=== PATIENT | male | born 1945 | race Caucasian/White ===

== ENCOUNTER 2017-04-16 07:29 | Day surgery (SDC) | payer OTHER ==
[2017-04-16] MEDS: NS 1,000 ML IV (08:15)
[2017-04-16] MEDS ORDERED: LIDOCAINE 2% INJ 100 MG/5 ML SDV (FOR ANES.) As Ordered (09:09)
[2017-04-16] MEDS ORDERED: PROPOFOL 200 MG/20 ML VIAL As Ordered ×2 (09:09→09:31)
== END 2017-04-16 10:30 | disposition home or self-care (01) ==
LOC: M OPP 07:29
DX: Z12.11 Encounter for screening for malignant neoplasm of colon (principal); Z86.010 Personal history of colon polyps; K64.0 First degree hemorrhoids; K57.30 Diverticulosis of large intestine without perforation or abscess without bleeding; R12 Heartburn; K22.8 Other specified diseases of esophagus; K44.9 Diaphragmatic hernia without obstruction or gangrene; B37.81 Candidal esophagitis; I10 Essential (primary) hypertension; R94.31 Abnormal electrocardiogram [ECG] [EKG]; E11.9 Type 2 diabetes mellitus without complications; E03.9 Hypothyroidism, unspecified; K76.0 Fatty (change of) liver, not elsewhere classified; K59.00 Constipation, unspecified; R10.9 Unspecified abdominal pain; K21.9 Gastro-esophageal reflux disease without esophagitis; M54.89 Other dorsalgia; M54.2 Cervicalgia; Z85.820 Personal history of malignant melanoma of skin; R51 Headache; J45.909 Unspecified asthma, uncomplicated; J44.9 Chronic obstructive pulmonary disease, unspecified; G47.30 Sleep apnea, unspecified; R06.83 Snoring; Z98.1 Arthrodesis status; Z88.8 Allergy status to other drugs, medicaments and biological substances; Z79.82 Long term (current) use of aspirin; Z79.899 Other long term (current) drug therapy; Z87.891 Personal history of nicotine dependence
CPT/HCPCS: G0105

== ENCOUNTER → 2017-12-01 | Outpatient (CLI) | payer OTHER | LOC: M CARPUL 11:07 | DX: R06.02 Shortness of breath (principal) | CPT/HCPCS: 93306 ==

== ENCOUNTER → 2018-06-18 | Outpatient (REF) | payer OTHER, MEDICARE ==
[~2018-06-18] MED LIST: ALBU83IN INH; ASPI1TAB PO; COQ-100C2 PO; FLON1SPR; GLUCPOW24 PO; LEVO25TA5 PO; LISI-542 PO; METF500T13 PO; METO25TA4 PO; MULT1TAB10 PO; OMEP40CA2 PO; SAW80CAP PO; VITA100067 PO
== END ==
LOC: M SFHCPLAZ 18:24
PROVIDERS: ATTEND Dermatology
DX: C44.311 Basal cell carcinoma of skin of nose (principal); L57.0 Actinic keratosis; L82.1 Other seborrheic keratosis

== ENCOUNTER 2018-11-11 14:49 | Inpatient (IN) | payer MEDICARE ==
[~2018-11-11] VITALS: Ht 172.7 cm; Wt 81.6 kg
[~2018-11-11 14:49] MED LIST changes: -ASPI1TAB PO; +ASPI81TA26 PO
[2018-11-11 16:15] LABS: VENOUS BASE EXCESS 0.9 (-2.0-2.0); VENOUS HCO3 26.1 MEQ/L (23.0-27.0); VENOUS O2 SATURATION 74.6 % (60.0-80.0); VENOUS PARTIAL PRESSURE CO2 44.7 mmHg (38.0-50.0); VENOUS PARTIAL PRESSURE O2 41.6 mmHg (30.0-50.0); VENOUS PH 7.385 UNITS (7.330-7.430); VENOUS STANDARD HCO3 24.8 MEQ/L; VENOUS TOTAL CO2 27.5 MEQ/L (24.0-28.0)
[2018-11-11 16:22] LABS: BASO % 0.3 % (0.0-1.0); EOS # 0.1 10^3/uL (0.0-0.50); EOS % 0.7 % (0.0-3.0); HEMATOCRIT 30.5 % (42.0-52.0); HEMOGLOBIN 9.5 g/dl (13.5-17.5); LYMPH % 9.9 % (24.0-44.0); MEAN CORPUSCULAR HGB CONC 31.1 g/dl (32.0-36.5); MONO % 9.9 % (0.0-5.0); NEUTROPHILS # 7.5 10^3/uL (1.8-7.7); NEUTROPHILS % 77.9 % (36.0-66.0); PLATELET COUNT, AUTOMATED 359 10^3/uL (150-450); RED BLOOD COUNT 3.28 10^6/uL (4.30-6.10); WHITE BLOOD COUNT 9.7 10^3/uL (4.0-10.0)
[2018-11-11 16:34] LABS: ALBUMIN 2.1 GM/DL (3.2-5.2); ALT/SGPT 122 U/L (12-78); AMYLASE 28 U/L (25-115); BILIRUBIN,DIRECT 0.8 MG/DL (0.0-0.2); BILIRUBIN,TOTAL 1.5 MG/DL (0.2-1.0); BLOOD UREA NITROGEN 9 MG/DL (7-18); C REACTIVE PROTEIN QUANTITATIV 4.04 MG/DL (0.00-0.30); CALCIUM LEVEL 8.3 MG/DL (8.8-10.2); CARBON DIOXIDE LEVEL 28 MEQ/L (21-32); CHLORIDE LEVEL 104 MEQ/L (98-107); CK-MB VALUE MASS < 1.0 NG/ML (<3.6); CPK CREATINE PHOSPHOKINASE 26 U/L (39-308); CREATININE FOR GFR 0.91 MG/DL (0.70-1.30); GLOMERULAR FILTRATION RATE > 60.0 (>42); GLUCOSE, FASTING 101 MG/DL (70-100); MB/CK RELATIVE INDEX 3.85 (< OR =4); POTASSIUM SERUM 4.2 MEQ/L (3.5-5.1); SODIUM LEVEL 137 MEQ/L (136-145); TOTAL PROTEIN 6.3 GM/DL (6.4-8.2); TROPONIN I < 0.02 NG/ML (< 0.10)
[2018-11-11 16:44] LABS: INR 1.88; PROTHROMBIN TIME 21.4 SECONDS (11.8-14.0)
[2018-11-11 16:45] LABS: PARTIAL THROMBOPLASTIN TIME 38.7 SECONDS (25.0-38.4)
[2018-11-11 16:49] LABS: APPEARANCE, URINE CLEAR (CLEAR); BACTERIA, URINE AUTO NEGATIVE (NEGATIVE); BILIRUBIN, URINE AUTO NEGATIVE (NEGATIVE); BLOOD, URINE BLOOD NEGATIVE (NEGATIVE); COLOR, URINE YELLOW (YELLOW); GLUCOSE, URINE (UA) AUTO NEGATIVE (NEGATIVE); KETONE, URINE AUTO NEGATIVE (NEGATIVE); LEUKOCYTE ESTERASE, URINE AUTO NEGATIVE (NEGATIVE); MUCUS, URINE SMALL (NEGATIVE); NITRITE, URINE AUTO NEGATIVE (NEGATIVE); PROTEIN, URINE AUTO NEGATIVE (NEGATIVE); RBC, URINE AUTO 2 /HPF (0-3); SPECIFIC GRAVITY URINE AUTO 1.012 (1.002-1.035); SQUAMOUS EPITHELIAL CELL UR AU 1 /HPF (0-6); WBC, URINE AUTO 0 /HPF (0-3)
[2018-11-11] MEDS ORDERED: XARE20TA PO (17:13)
[2018-11-11] MEDS ORDERED: MONT10TA2 PO (17:13)
[2018-11-11] MEDS ORDERED: PRAV10TA3 PO (17:13)
[2018-11-11] MEDS ORDERED: TRAM50TA2 PO (17:13)
[2018-11-11] MEDS ORDERED: SPIR1CAP INH (17:13)
[2018-11-11] MEDS ORDERED: XARE15TA PO (17:13)
[2018-11-11] MEDS ORDERED: ASPIRIN PO (17:13)
[2018-11-11] MEDS ORDERED: RANI300C PO (17:13)
[2018-11-11] MEDS ORDERED: LEVO750T13 PO (17:13)
[2018-11-11] MEDS ORDERED: ADV500INH INH (17:13)
--- NOTE | 2018-11-11 17:57 | REPVR ---
EXAM: CT Chest Without Contrast EXAM DATE/TIME: 11/11/2018 5:24 PM CLINICAL HISTORY: 73 years old, male; Chest pain; Additional info: Infiltrate/atelectasis S/P chest tube TECHNIQUE: Imaging protocol: Computed tomography images of the chest without contrast. 3D rendering: MIP reconstructed images were created and reviewed. Radiation optimization: All CT scans at this facility use at least one of these dose optimization techniques: automated exposure control; mA and/or kV adjustment per patient size (includes targeted exams where dose is matched to clinical indication); or iterative reconstruction. COMPARISON: CR PORTABLE CHEST X-RAY 11/11/2018 3:36 PM FINDINGS: Lungs: There is a parenchymal infiltrate in the right lower lobe with air bronchograms likely atelectatic although infection should be excluded clinically. 3.5 mm noncalcified nodule left upper lobe and 3.8 mm noncalcified nodule posterior segment left upper lobe abuts the major fissure. These are likely postinflammatory. No followup suggested. Thickened airways demonstrated in the left lower lobe may indicate the presence of peribronchial inflammation and bronchitis. Pleural space: There is a small right pleural effusion, possibly loculated on the right. Small left pleural effusion. Slight increased density demonstrated in components of the fluid to represent hemorrhage. Heart: There is mild atherosclerotic calcification of the coronary arteries. Aorta: The aorta demonstrates mild atherosclerotic calcification. Lymph nodes: Unremarkable. No enlarged lymph nodes. Bones/joints: Fractures demonstrated in the right first and 10th ribs. Fractures demonstrated in the left first rib. The spine demonstrates moderate degenerative changes. Soft tissues: Soft tissue air demonstrated anterior to the right pectoralis muscle, right lateral chest wall, and anterior to the left pectoralis muscle. Findings likely related to the presence of rib fractures and/or recent removal of chest tubes. Liver: There is a hypoattenuating mass with foci of increased attenuation demonstrated in the posterior aspect of the right lobe of the liver measuring approximately 5.9 x 10.3 x 8.1 cm. IMPRESSION: 1. There is a small right pleural effusion, possibly loculated on the right. Small left pleural effusion. Slight increased density demonstrated in components of the fluid to represent hemorrhage. 2. There is a parenchymal infiltrate in the right lower lobe with air bronchograms likely atelectatic although infection should be excluded clinically. 3. Thickened airways demonstrated in the left lower lobe may indicate the presence of peribronchial inflammation and bronchitis. 4. Soft tissue air demonstrated anterior to the right pectoralis muscle, right lateral chest wall, and anterior to the left pectoralis muscle. Findings likely related to the presence of rib fractures and/or recent removal of chest tubes. 5. Fractures demonstrated in the right first and 10th ribs. Fractures demonstrated in the left first rib. 6. There is a hypoattenuating mass with foci of increased attenuation demonstrated in the posterior aspect of the right lobe of the liver measuring approximately 5.9 x 10.3 x 8.1 cm. Electronically signed by: Manny Blake On 11/11/2018 17:56:50 PM
[2018-11-11] MEDS ORDERED: VANCOMYCIN HCL 1,000 MG, VIAL MATE ADAPTER 1 EACH in D5W 250 ML IV ONE (18:00)
[2018-11-11] MEDS ORDERED: PIPERACILLIN/TAZOBACTAM SOD 3.375 GM in D5W MINI-BAG PLUS 50 ML IV ONE (18:00)
--- NOTE | 2018-11-11 18:30 | REP ---
PORTABLE CHEST: AP portable view of the chest is performed. COMPARISON: 08/26/2017 There are fractures of the right posterolateral third through ninth ribs. There is no pneumothorax. There is right basilar parenchymal opacity representing atelectasis or infiltrate. There is mild elevation of the right hemidiaphragm. Left lung is clear. Heart is not enlarged. Mediastinal silhouette is unremarkable. Electronically Signed by Brayan Perry MD 11/13/2018 10:49 A
[2018-11-11] MEDS ORDERED: ASPI-1 PO (18:38)
[2018-11-11] MEDS ORDERED: METO1TAB32 PO (18:44)
[2018-11-11] MEDS ORDERED: FLUTICASONE PROP 0.05% NASAL SPRAY 16 GM (FLONASE) PRN (20:45)
[2018-11-11] MEDS ORDERED: DEXTROSE 50% 50 ML SYRINGE IV PRN (20:45)
[2018-11-11] MEDS ORDERED: GLUCAGON FOR INJ 1 MG VIAL (J1610) SC PRN (20:45)
[2018-11-11] MEDS ORDERED: GLUCOSE 4 GM CHEW TABLET PO PRN (20:45)
[2018-11-11] MEDS: ADVAIR HFA 230/21MCG INHALER INH SCH (21:00)
[2018-11-11] MEDS: MONTELUKAST 10 MG TAB PO SCH (21:00)
[2018-11-11 21:30] VITALS: BP 155/75
[2018-11-11] MEDS: ACETAMINOPHEN TAB 650MG DOSE (2X325MG) PO PRN (21:58)
[2018-11-11] MEDS: RIVAROXABAN 15 MG TAB (XARELTO) PO SCH (21:58)
[2018-11-11] MEDS: DOCUSATE SODIUM 100 MG CAP PO SCH (21:59)
[2018-11-11] MEDS: HumaLOG INSULIN (NovoLOG) PER UNIT SC SCH (22:00)
[2018-11-11] MEDS ORDERED: SLF 3 ML SYR IV PRN (22:30)
--- NOTE | 2018-11-11 22:39 | HPEPDOC ---
[facility] Medical History & Physical Date of Admission Nov 11, 2018 Date of Service: Nov 11, 2018 History and Physical CHIEF COMPLAINT: [FEVER ] HISTORY OF PRESENT ILLNESS: This is a 73 yo male who was recently admitted at [facility] after falling from a tree branch. He came in today for fever last night and this morning. Of Note when he was admitted to [facility], after the fall he was dx with hypovolemic shock, subcutaneous emphysema, traumatic pneumothorax, met acidosis with increased AG, closed fracture of multiple ribs on right side, pneumomediastinum, splenic laceration with open wound into cavity, liver laceration grade II with open wound into cavity, and traumatic hemoperitoneum. A chest tube was placed ( patient said on both sides) and he was admitted to icu . He also developed sbo and afib with rvr and ?pneumonia. Later patient became more dyspnic and a CTA revealed a small PE in the right pulm art faby. Blood cx grew ecoli. He was seen and treated by multiple specialists and was dc yesterday 11/10/18. Thorough details of this visit should be scanned into patient's chart. So he was dc on xeralto for afib//PE and levaquin for 7 days, along with other meds for his chronic med hx . He developed fever less than 24 hours after dc . He has a very productive cough, but is having difficulty with expectorating it. Patient denied headache, chest pain, sob, back pain, nausea, vomiting , abd pain, constipation or diarrhea PAST MEDICAL HISTORY: htn dm2 hypothyroidism afib PE cholelithiasis ecoli bacteriemia asthma hypovolemic shock subcutaneous emphysema traumatic pneumothorax met acidosis with increased AG closed fracture of multiple ribs on right side pneumomediastinum splenic lcaeration with open wound into cavity liver laceration grade II with open wound into cavity traumatic hemoperitoneum. PAST SURGICAL HISTORY: 1. rotator cuff surgery 2. knee surgery - after trauma (?ligament damage - pt doesn't remember which side ) 3. nose surgery x2 - 1. traumatic event , sinusitis 4. back- surgery - multiple vertebrae involved 5. chest tube placement SOCIAL HISTORY: Marital status: [ ]. Resides in: [lives with ] Children: Employment: [retired ] Tobacco use:[quit in ] ETOH: [occasional use ] Illicit drug use: [none ] Tattoos done unprofessionally: [no ]. 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 REVIEW OF SYSTEMS: All 10 points ros are negative except what's stated in HPI. HOME MEDICATIONS: Please see below. PHYSICAL EXAMINATION: vital signs - see below Gen: NAD . productive cough, lying comfortably at 30 degrees head raise, HEENT: normocephalic , atraumatic , PERRLA, neck supple, no pharyngeal erythema, small amount of candidiasis on tongue CVS: RRR, normal s1//s2, no murmurs, rubs or gallop, Resp: productive cough, decreased breath sound in left lower lung field, right lung field clear to auscultation Abd: soft, nontender, distended, +bs msk: normal rom, normal strength in all extremities, pedal +2 edema skin: back with diffused skin tags, hyperpigmented neuro: AOAx3, no focal deficit psych: normal mood and affects, good judgement LABORATORY DATA: See below. IMAGING: [ PORTABLE CHEST: AP portable view of the chest is performed. COMPARISON: 08/26/2017 There are fractures of the right posterolateral third through ninth ribs. There is no pneumothorax. There is right basilar parenchymal opacity representing atelectasis or infiltrate. There is mild elevation of the right hemidiaphragm. Left lung is clear. Heart is not enlarged. Mediastinal silhouette is unremarkable. CHEST CT IMPRESSION: 1. There is a small right pleural effusion, possibly loculated on the right. Small left pleural effusion. Slight increased density demonstrated in components of the fluid to represent hemorrhage. 2. There is a parenchymal infiltrate in the right lower lobe with air bronchograms likely atelectatic although infection should be excluded clinically. 3. Thickened airways demonstrated in the left lower lobe may indicate the presence of peribronchial inflammation and bronchitis. 4. Soft tissue air demonstrated anterior to the right pectoralis muscle, right lateral chest wall, and anterior to the left pectoralis muscle. Findings likely related to the presence of rib fractures and/or recent removal of chest tubes. 5. Fractures demonstrated in the right first and 10th ribs. Fractures demonstrated in the left first rib. 6. There is a hypoattenuating mass with foci of increased attenuation demonstrated in the posterior aspect of the right lobe of the liver measuring approximately 5.9 x 10.3 x 8.1 cm. ] MICROBIOLOGY: Please see below. ASSESSMENT: 73 yo male with recent hospitalization at [facility] for a complicated traumatic fall who presented to our ED for cough and fever, admitted for HCAP PLAN: HCAP and atelectasis -C/W Vanc and zosyn -f/u blood cx -f/u procal -f/u sputum gs and cx -f/'u resp panel -f/u echo -f/u bascterial ag -f/u nasal mrsa r/o -c/w incentive spirometer asthma, chronic stable c/w singulair, advair and duoneb prn afib//PE -ekg- nsr at 96bpm - c/w xarelto -c/w metoprolol htn c/w home meds - bp stable hypothyroidism -c/w levothyroxine dvt ppx - on xeralto full code, from home , no svc Vital Signs Vital Signs Date Time Temp Pulse Resp B/P (MAP) Pulse Ox O2 Delivery O2 Flow Rate FiO2 11/11/18 18:45 92 137/73 (94) 96 11/11/18 14:49 100.3 22 Laboratory Data Labs 24H Laboratory Tests 2 11/11/18 15:47: Immature Granulocyte % (Auto) 1.3, White Blood Count 9.7, Red Blood Count 3.28L, Hemoglobin 9.5L, Hematocrit 30.5L, Mean Corpuscular Volume 93.0, Mean Corpuscular Hemoglobin 29.0, Mean Corpuscular Hemoglobin Concent 31.1L, Red Cell Distribution Width 15.0H, Platelet Count 359, Neutrophils (%) (Auto) 77.9H, Lymphocytes (%) (Auto) 9.9L, Monocytes (%) (Auto) 9.9H, Eosinophils (%) (Auto) 0.7, Basophils (%) (Auto) 0.3, Neutrophils # (Auto) 7.5, Lymphocytes # (Auto) 1.0L, Monocytes # (Auto) 1.0H, Eosinophils # (Auto) 0.1, Basophils # (Auto) 0.0, Nucleated Red Blood Cells % (auto) 0.0, Prothrombin Time 21.4H, Prothromb Time International Ratio 1.88, Activated Partial Thromboplast Time 38.7H, Urine Appearance CLEAR, Urine Color YELLOW, Urine pH 8.0, Urine Specific [place] 1.012, Urine Protein NEGATIVE, Urine Glucose (UA) NEGATIVE, Urine Ketones NEGATIVE, Urine Urobilinogen 4.0H, Urine Bilirubin NEGATIVE, Urine Leukocyte Esterase NEGATIVE, Urine Blood NEGATIVE, Urine Nitrite NEGATIVE, Urine WBC (Auto) 0, Urine RBC (Auto) 2, Urine Hyaline Casts (Auto) 0, Urine Bacteria (Auto) NEGATIVE, Urine Squamous Epithelial Cells 1, Urine Mucus (Auto) SMALL, Urine Sperm (Auto) , Blood Gas Bicarbonate Standard 24.8, Venous Blood pH 7.385, Venous Blood Partial Pressure CO2 44.7, Venous Blood Partial Pressure O2 41.6, Venous Blood Total Carbon Dioxide 27.5, Venous Blood HCO3 26.1, Venous Blood Oxygen Saturation 74.6, Venous Blood Base Excess 0.9, Anion Gap 5L, Glomerular Filtration Rate > 60.0, Lactic Acid Level 1.1, Calcium Level 8.3L, Aspartate Amino Transf (AST/SGOT) 65H, Alanine Aminotransferase (ALT/SGPT) 122H, Alkaline Phosphatase 413H, Total Bilirubin 1.5H, Direct Bilirubin 0.8H, Total Creatine Kinase 26L, Creatine Kinase MB < 1.0, Creatine Kinase MB Relative Index 3.85, Troponin I < 0.02, C-Reactive Protein, Quantitative 4.04H, Total Protein 6.3L, Albumin 2.1L, Albumin/Globulin Ratio 0.50L, Amylase Level 28 CBC/BMP Laboratory Tests 11/11/18 15:47 Red Blood Count 3.28 L, Mean Corpuscular Volume 93.0, Mean Corpuscular Hemoglob in 29.0, Mean Corpuscular Hemoglobin Concent 31.1 L, Red Cell Distribution Width 15.0 H, Neutrophils (%) (Auto) 77.9 H, Lymphocytes (%) (Auto) 9.9 L, Monocytes (%) (Auto) 9.9 H, Eosinophils (%) (Auto) 0.7, Basophils (%) (Auto) 0.3, Neutrophils # (Auto) 7.5, Lymphocytes # (Auto) 1.0 L, Monocytes # (Auto) 1.0 H, Eosinophils # (Auto) 0.1, Basophils # (Auto) 0.0 Microbiology Microbiology 11/11/18 Blood Culture, Received Pending 11/11/18 Blood Culture, Received Pending 11/11/18 Urine Culture, Received Pending Home Medications Scheduled Aspirin (Aspirin) 325 Mg Tablet, 325 MG PO DAILY Fluticasone Propionate (Flonase Allergy Relief) 50 Mcg/Act Spr, 50 MCG NA DAILY Levofloxacin (Levofloxacin) 750 Mg Tablet, 750 MG PO DAILY PT STARTED 7 DAY COURSE ON 11/11 Lisinopril (Lisinopril) 5 Mg Tab, 5 MG PO DAILY Metformin HCl (Metformin HCl) 500 Mg Tab, 500 MG PO DAILY Metoprolol Succinate (Metoprolol Succinate) 25 Mg Tab.er.24h, 25 MG PO DAILY Montelukast Sodium (Montelukast Sodium) 10 Mg Tablet, 10 MG PO QHS Omeprazole (Omeprazole) 40 Mg Cap, 40 MG PO DAILY Pravastatin Sodium (Pravastatin Sodium) 10 Mg Tablet, 10 MG PO DAILY Rivaroxaban (Xarelto) 15 Mg Tablet, 15 MG PO BID PT IS TAKING 15MG BID UNTIL 11/30/18 WHEN HE IS TO TAPER TO 20MG DAILY Rivaroxaban (Xarelto) 20 Mg Tablet, 20 MG PO DAILY WITH DINNER. NOT TO START UNTIL 11/30/18 Salmeterol/Fluticasone (Advair 500-50 Diskus) 1 Each Blst.w.dev, 1 PUFF INH BID Scheduled PRN Tramadol HCl (Tramadol HCl) 50 Mg Tablet, 50 MG PO Q6HP PRN for pain Allergies Coded Allergies: celecoxib (Verified Adverse Reaction, Intermediate, LIVER DAMAGE, 11/11/18) A-FIB/CHADSVASC A-FIB History Current/History of A-Fib/PAF?: Yes Current PO Anticoag Therapy: Yes Age/Risk Factor Scoring CHADSVASC: CHADSVASC Response (Comments) Value Age Risk Factor Age >/= 75 years old 2 Gender Risk Factor Male 0 Hx of CHF No 0 Hx of HTN Yes 1 Hx of Stroke/TIA/or VTE No 0 Hx of Diabetes Yes 1 Hx of Vascular Disease No 0 Total 4 Treatment Treatment ordered: Rivaroxaban MICHELLE MALIK MD Nov 11, 2018 21:49
--- NOTE | 2018-11-11 23:07 | PHACANCOPD ---
PHARMACY VANCOMYCIN DOSING Pt Demographics Demographics Patient Age:73 , Weight:85.300 , Gender: male Adjusted Body Weight Date: 11/11/18, Adjusted Body Weight: [75.16] Kg Events Past 24 Hours Events Past 24 Hours: NO: Dialysis, Diuretic Therapy, Change in CrCl, Fever, Elevation in WBC, Pending Diagnostics, Pending Procedures, Other Vancomycin Vancomycin indication: hcap Vancomycin Target Ranges: 15-20 mcg/ml Vancomycin Load Y/N: Yes Load Dose Date Time Vancomycin Load Dose: 1.75G Date: 11/12/18 Time:00:00 Vancomycin Dose Date: 11/11/18. Current Vancomycin Dose: [1GIV Q12H] Intermittent Dosing?: No Labs Labs Item Value Date Time White Blood Count 9.7 10^3/uL 11/11/18 1547 Creatinine 0.91 MG/DL 11/11/18 1547 C-Reactive Protein, Quantitative 4.04 MG/DL H 11/11/18 1547 Micro Microbiology 11/11/18 Blood Culture, Received Pending 11/11/18 Blood Culture, Received Pending 11/11/18 MRSA Screen, Received Pending 11/11/18 Urine Culture, Received Pending Creatinine Clearance Date:11/11/18. Creatinine Clearance: [~75ML/MIN ADJUSTED]. Pending Labs VANCOMYCIN TROUGH 11/13/18 @07:00; MRSA PCR Assessment and Plan Maintaining Current Dose?: Yes Reason for dose change: No Dose Change Pharmacist Note Pharmacist Note Date: 11/11/18. Pharmacist note: PT is a 73 year old male being treated for HCAP goal trough 15-20mcg/ml. The patient has not received vancomycin here at [facility] in the past. To achieve goal 1g vancomycin IV was administered 11/11 a 750mg IV dose will be administered 11/12/18 @00:00. Maintenance therapy will consist of 1g IV every 12 hours starting 11/12/18 @ 08:00. A trough is scheduled 11/13/18 @07 prior to the 4th dose. We will continue to monitor and adjust the dose as needed. BRANDT RE[facility] Nov 11, 2018 23:07
[2018-11-11 23:59] VITALS: BP 140/67
[2018-11-12] MEDS ORDERED: VANCOMYCIN HCL 750 MG, VIAL MATE ADAPTER 1 EACH in D5W 250 ML IV ONE ×3
[2018-11-12] MEDS: traMADol 50 MG TAB PO PRN ×3 (01:03→22:23)
[2018-11-12] MEDS: PIPERACILLIN/TAZOBACTAM SOD 3.375 GM in D5W MINI-BAG PLUS 50 ML IV SCH ×4 (02:10→20:30)
[2018-11-12 04:00] VITALS: BP 135/74
[2018-11-12] MEDS: ACETAMINOPHEN TAB 650MG DOSE (2X325MG) PO PRN ×2 (04:17→14:28)
[2018-11-12 05:54] LABS: HEMATOCRIT 29.3 % (42.0-52.0); HEMOGLOBIN 9.2 g/dl (13.5-17.5); MEAN CORPUSCULAR HEMOGLOBIN 28.4 pg (27.0-33.0); MEAN CORPUSCULAR HGB CONC 31.4 g/dl (32.0-36.5); MEAN CORPUSCULAR VOLUME 90.4 fl (80.0-96.0); PLATELET COUNT, AUTOMATED 313 10^3/uL (150-450); RED BLOOD COUNT 3.24 10^6/uL (4.30-6.10); WHITE BLOOD COUNT 9.6 10^3/uL (4.0-10.0)
[2018-11-12] MEDS: SLF 3 ML SYR IV SCH ×3 (06:06→22:24)
[2018-11-12 06:21] LABS: BLOOD UREA NITROGEN 8 MG/DL (7-18); CALCIUM LEVEL 8.3 MG/DL (8.8-10.2); CARBON DIOXIDE LEVEL 24 MEQ/L (21-32); CHLORIDE LEVEL 107 MEQ/L (98-107); CREATININE FOR GFR 0.89 MG/DL (0.70-1.30); GLOMERULAR FILTRATION RATE > 60.0 (>42); GLUCOSE, FASTING 104 MG/DL (70-100); POTASSIUM SERUM 3.8 MEQ/L (3.5-5.1); SODIUM LEVEL 139 MEQ/L (136-145)
[2018-11-12] MEDS: ADVAIR HFA 230/21MCG INHALER INH SCH ×2 (07:11→19:55)
[2018-11-12 08:00] VITALS: BP 133/69
[2018-11-12] MEDS: VANCOMYCIN HCL 1,000 MG, VIAL MATE ADAPTER 1 EACH in D5W 250 ML IV SCH ×2 (08:47→22:22)
[2018-11-12] MEDS: RIVAROXABAN 15 MG TAB (XARELTO) PO SCH ×2 (08:52→20:31)
[2018-11-12] MEDS: DOCUSATE SODIUM 100 MG CAP PO SCH ×2 (08:52→20:31)
[2018-11-12] MEDS: OMEPRAZOLE 20 MG CAP PO SCH (08:52)
[2018-11-12] MEDS: LISINOPRIL 5 MG TAB PO SCH (08:53)
[2018-11-12] MEDS: METOPROLOL SUCC *XL* 25MG TAB (TopROL *XL*) PO SCH (08:53)
[2018-11-12] MEDS: PRAVASTATIN 10 MG TAB PO SCH (08:53)
[2018-11-12] MEDS ORDERED: IPRATROPIUM 0.5MG/ALBUTEROL 2.5MG INH SOL UD 3ML (DUONEB)(J7620) NEB PRN (10:30)
--- NOTE | 2018-11-12 10:36 | IPNPDOC ---
Subjective Date Seen The patient was seen on 11/12/18. Subjective Chief Complaint/HPI Patient is comfortable in no apparent distress. Offers no new complaints. is at bedside General: Denies: ROS Unobtainable, Chills, Night Sweats, Fatigue, Malaise, Normal Appetite, Other Symptoms Constitutional: Denies: Chills, Fever, Malaise, Night Sweats, Weakness, Fatigue, Weight Loss, Lethargy, Other Eyes: Denies: Pain, Vision change, Conjunctivae inflammation, Eyelid inflammation, Redness, Other ENT: Denies: Head Aches, Ear Pain, Dysphagia, Sinus Congestion, Post Nasal Drip, Sore Throat, Epistaxis, Other Symptoms Skin: Denies: Rash, Lesions, Jaundice, Bruising, Itching, Dry, Breakdown, Nail Changes, Other Pulmonary: Denies: Dyspnea, Cough, Pleuritic Chest Pain, Other Symptoms Cardiovascular: Denies: Chest Pain, Palpitations, Orthopnea, Paroxysmal Noc. Dyspnea, Edema, Lt Headedness, Other Symptoms Gastrointestinal: Denies: Nausea, Vomiting, Abdominal Pain, Diarrhea, Constipation, Melena, Hematochezia, Other Symptoms Musculoskeletal: Denies: Neck Pain, Back Pain, Shoulder Pain, Arm Pain, Hand Pain, Leg Pain, Foot Pain, Joint Pain, Muscle Pain, Spasms, Other Symptoms Neurological: Denies: Weakness, Numbness, Incoordination, Change in speech, Confusion, Seizures, Other Symptoms Psych: Denies: Mood Normal, Anxiety, Depression, Memory Issues, Thoughts of Self Harm, Anger, Thoughts of Harming Other, Other Psych Objective Physical Examination General Exam: Positive: Alert, Cooperative Eye Exam: Positive: PERRLA, Conjunctiva & lids normal Neck Exam: Positive: Supple Chest Exam: Positive: Other (, scattered crackles, () Heart Exam: Positive: Rate Normal, Normal S1, Normal S2 Abdomen Exam: Positive: Normal bowel sounds, Soft Skin Exam: Positive: Nl turgor and temperature Neuro Exam: Positive: Strength at 5/5 X4 ext, Sensation Intact Psych Exam: Positive: Mental status NL, Mood NL, Oriented x 3 Assessment /Plan Problems (1) HCAP (healthcare-associated pneumonia) Status: Acute Problem Text: Patient has been started on Zosyn and vancomycin Continue present antibiotics Continue IV fluids Repeat labs in a.m. Will get a repeat x-ray in 48 hours Continue home meds Regimen. Discussed with patient and his at bedside and all questions answered (2) Liver mass Status: Acute Problem Text: Questionable liver mass on the CT chest Most likely resolved or resolving hematoma. It patient at the level laceration recently , But will get MRI with contrast to rule out malignancy (3) Atrial fibrillation Status: Chronic Problem Text: Rate is under well control Continue present medications (4) Hypothyroid Status: Chronic Problem Text: Continue home meds (5) HTN (hypertension) Status: Chronic Problem Text: Continue home meds (6) Asthma Status: Chronic Problem Text: Stable continue home meds Plan/VTE VTE Prophylaxis Ordered?: Yes VS, I&O, 24H, Fishbone Vital Signs/I&O Vital Signs Date Time Temp Pulse Resp B/P (MAP) Pulse Ox O2 Delivery O2 Flow Rate FiO2 11/12/18 08:53 86 133/69 11/12/18 08:00 99.6 16 96 I&O- Last 24 Hours up to 6 AM 11/12/18 06:00 Intake Total 1195 ml Output Total 400 ml Balance 795 ml Laboratory Data 24H LABS Laboratory Tests 2 11/11/18 15:47: Immature Granulocyte % (Auto) 1.3, White Blood Count 9.7, Red Blood Count 3.28L, Hemoglobin 9.5L, Hematocrit 30.5L, Mean Corpuscular Volume 93.0, Mean Corpuscular Hemoglobin 29.0, Mean Corpuscular Hemoglobin Concent 31.1L, Red Cell Distribution Width 15.0H, Platelet Count 359, Neutrophils (%) (Auto) 77.9H, Lymphocytes (%) (Auto) 9.9L, Monocytes (%) (Auto) 9.9H, Eosinophils (%) (Auto) 0.7, Basophils (%) (Auto) 0.3, Neutrophils # (Auto) 7.5, Lymphocytes # (Auto) 1.0L, Monocytes # (Auto) 1.0H, Eosinophils # (Auto) 0.1, Basophils # (Auto) 0.0, Nucleated Red Blood Cells % (auto) 0.0, Prothrombin Time 21.4H, Prothromb Time International Ratio 1.88, Activated Partial Thromboplast Time 38.7H, Urine Appearance CLEAR, Urine Color YELLOW, Urine pH 8.0, Urine Specific [place] 1.012, Urine Protein NEGATIVE, Urine Glucose (UA) NEGATIVE, Urine Ketones NEGATIVE, Urine Urobilinogen 4.0H, Urine Bilirubin NEGATIVE, Urine Leukocyte Esterase NEGATIVE, Urine Blood NEGATIVE, Urine Nitrite NEGATIVE, Urine WBC (Auto) 0, Urine RBC (Auto) 2, Urine Hyaline Casts (Auto) 0, Urine Bacteria (Auto) NEGATIVE, Urine Squamous Epithelial Cells 1, Urine Mucus (Auto) SMALL, Urine Sperm (Auto) , Blood Gas Bicarbonate Standard 24.8, Venous Blood pH 7.385, Venous Blood Partial Pressure CO2 44.7, Venous Blood Partial Pressure O2 41.6, Venous Blood Total Carbon Dioxide 27.5, Venous Blood HCO3 26.1, Venous Blood Oxygen Saturation 74.6, Venous Blood Base Excess 0.9, Anion Gap 5L, Glomerular Filtration Rate > 60.0, Lactic Acid Level 1.1, Calcium Level 8.3L, Aspartate Amino Transf (AST/SGOT) 65H, Alanine Aminotransferase (ALT/SGPT) 122H, Alkaline Phosphatase 413H, Total Bilirubin 1.5H, Direct Bilirubin 0.8H, Total Creatine Kinase 26L, Creatine Kinase MB < 1.0, Creatine Kinase MB Relative Index 3.85, Troponin I < 0.02, C-Reactive Protein, Quantitative 4.04H, Total Protein 6.3L, Albumin 2.1L, Albumin/Globulin Ratio 0.50L, Amylase Level 28 11/11/18 22:39: Bedside Glucose (Misc Panel) 99 11/12/18 05:36: Nucleated Red Blood Cells % (auto) 0.0, Anion Gap 8, Glomerular Filtration Rate > 60.0, Calcium Level 8.3L, Blood Urea Nitrogen 8, Creatinine 0.89, Sodium Level 139, Potassium Level 3.8, Chloride Level 107, Carbon Dioxide Level 24, Magnesium Level 2.0 CBC/BMP Laboratory Tests 11/11/18 15:47 Red Blood Count 3.28 L, Mean Corpuscular Volume 93.0, Mean Corpuscular Hemoglobin 29.0, Mean Corpuscular Hemoglobin Concent 31.1 L, Red Cell Distribution Width 15.0 H, Neutrophils (%) (Auto) 77.9 H, Lymphocytes (%) (Auto) 9.9 L, Monocytes (%) (Auto) 9.9 H, Eosinophils (%) (Auto) 0.7, Basophils (%) (Auto) 0.3, Neutrophils # (Auto) 7.5, Lymphocytes # (Auto) 1.0 L, Monocytes # (Auto) 1.0 H, Eosinophils # (Auto) 0.1, Basophils # (Auto) 0.0 11/12/18 05:36 Red Blood Count 3.24 L, Mean Corpuscular Volume 90.4, Mean Corpuscular Hemoglobin 28.4, Mean Corpuscular Hemoglobin Concent 31.4 L, Red Cell Distribution Width 15.1 H, Calcium Level 8.3 L Microbiology Microbiology 11/11/18 Blood Culture, Received Pending 11/11/18 Blood Culture, Received Pending 11/12/18 Respiratory Virus Panel (PCR) (NAE) - Final, Complete Human Rhinovirus/Enterovirus 11/12/18 Gram Stain, Received Pending 11/12/18 Sputum Culture, Received Pending 11/11/18 MRSA Screen, Received Pending 11/11/18 Urine Culture, Received Pending ROSE PIMENTEL MD Nov 12, 2018 10:36
[2018-11-12 12:00] VITALS: BP 121/59
--- NOTE | 2018-11-12 13:33 | ECGEPIP ---
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
[2018-11-12 16:00] VITALS: BP 118/68
[2018-11-12 20:00] VITALS: BP 126/63
[2018-11-12] MEDS: MIRALAX *UNIT DOSE* 17GM PACKET PO PRN ×2 (20:30→20:32)
[2018-11-12] MEDS: MONTELUKAST 10 MG TAB PO SCH (20:31)
[2018-11-12] MEDS: HumaLOG INSULIN (NovoLOG) PER UNIT SC SCH (21:00)
[2018-11-13] VITALS (7 sets, daily range): BP systolic 124–144; BP diastolic 60–75
[2018-11-13] MEDS: PIPERACILLIN/TAZOBACTAM SOD 3.375 GM in D5W MINI-BAG PLUS 50 ML IV SCH ×4 (02:00→20:16)
[2018-11-13] MEDS: ACETAMINOPHEN TAB 650MG DOSE (2X325MG) PO PRN ×2 (04:23→22:35)
[2018-11-13] MEDS: SLF 3 ML SYR IV SCH ×3 (04:23→20:16)
[2018-11-13] MEDS: ADVAIR HFA 230/21MCG INHALER INH SCH ×2 (07:16→20:31)
--- NOTE | 2018-11-13 08:08 | PHACANCOPD ---
PHARMACY VANCOMYCIN DOSING Pt Demographics Demographics Patient Age:73 , Weight:84.600 , Gender: male Adjusted Body Weight Date: 11/11/18, Adjusted Body Weight: [75.16] Kg Events Past 24 Hours Events Past 24 Hours: YES: Fever; NO: Dialysis, Diuretic Therapy, Change in CrCl, Elevation in WBC, Pending Diagnostics, Pending Procedures, Other Vancomycin Vancomycin indication: hcap Vancomycin Target Ranges: 15-20 mcg/ml Vancomycin Load Y/N: Yes Load Dose Date Time Vancomycin Load Dose: 1.75G Date: 11/12/18 Time:00:00 Vancomycin Dose Date: 11/11/18. Current Vancomycin Dose: [1GIV Q12H] Intermittent Dosing?: No Labs Labs Item Value Date Time Vancomycin Level Trough 14.9 UG/ML 11/13/18 0719 White Blood Count 9.6 10^3/uL 11/12/18 0536 White Blood Count 9.7 10^3/uL 11/11/18 1547 Creatinine 0.91 MG/DL 11/11/18 1547 Creatinine 0.89 MG/DL 11/12/18 0536 Vital Signs Label Value Date Time Patient Temperature 99.5 degrees F 11/13/18 0400 Temperature Source Temporal 11/13/18 0400 Patient Temperature 100.4 degrees F 11/13/18 0000 Temperature Source Oral 11/13/18 0000 Patient Temperature 98.8 degrees F 11/12/18 2000 Temperature Source Oral 11/12/18 2000 Micro Microbiology 11/11/18 Blood Culture - Preliminary, Resulted No growth after 24 hours . All specim... 11/11/18 Blood Culture - Preliminary, Resulted No growth after 24 hours . All specim... 11/12/18 Respiratory Virus Panel (PCR) (NAE) - Final, Complete Human Rhinovirus/Enterovirus 11/12/18 Gram Stain - Final, Resulted 11/12/18 Sputum Culture, Resulted Pending 11/11/18 MRSA Screen - Final, Complete 11/11/18 Urine Culture, Received Pending Creatinine Clearance Date:11/11/18. Creatinine Clearance: [~75ML/MIN ADJUSTED]. Pending Labs VANCOMYCIN TROUGH 11/13/18 @07:00; MRSA PCR Assessment and Plan Maintaining Current Dose?: Yes Reason for dose change: No Dose Change Pharmacist Note Pharmacist Note 11/13/18: Trough this Am drawn at 0719 before dose at 0800 resulted at 14.9mcg/ml. This is basically at our goal of 15-20mcg/ml. At this time I will continue the current dose of Vanco 1G IV Q12H@0800. We will continue to monitor and adjust dose as needed. Date: 11/11/18. Pharmacist note: PT is a 73 year old male being treated for HCAP goal trough 15-20mcg/ml. The patient has not received vancomycin here at [facility] in the past. To achieve goal 1g vancomycin IV was administered 11/11 a 750mg IV dose will be administered 11/12/18 @00:00. Maintenance therapy will consist of 1g IV every 12 hours starting 11/12/18 @ 08:00. A trough is scheduled 11/13/18 @07 prior to the 4th dose. We will continue to monitor and adjust the dose as needed. TRINY STEEN PHARMACY Nov 13, 2018 08:08
[2018-11-13] MEDS ORDERED: PREVNAR 13 VACCINE SYRINGE (CPT CODE:90670) IM ONE (09:00)
[2018-11-13] MEDS: VANCOMYCIN HCL 1,000 MG, VIAL MATE ADAPTER 1 EACH in D5W 250 ML IV SCH (09:17)
[2018-11-13] MEDS: DOCUSATE SODIUM 100 MG CAP PO SCH ×2 (09:18→20:16)
[2018-11-13] MEDS: METOPROLOL SUCC *XL* 25MG TAB (TopROL *XL*) PO SCH (09:18)
[2018-11-13] MEDS: RIVAROXABAN 15 MG TAB (XARELTO) PO SCH ×2 (09:18→20:16)
[2018-11-13] MEDS: OMEPRAZOLE 20 MG CAP PO SCH (09:18)
[2018-11-13] MEDS: LISINOPRIL 5 MG TAB PO SCH (09:19)
[2018-11-13] MEDS: PRAVASTATIN 10 MG TAB PO SCH (10:33)
--- NOTE | 2018-11-13 11:01 | IPNPDOC ---
Subjective Date Seen The patient was seen on 11/13/18. Subjective Chief Complaint/HPI Patient is comfortable lying down in bed worried whether his blood culture is positive for Escherichia coli. It was in [place], he had a low-grade fever last night but no nausea, vomiting, no shortness of breath General: Denies: ROS Unobtainable, Chills, Night Sweats, Fatigue, Malaise, Normal Appetite, Other Symptoms Constitutional: Denies: Chills, Fever, Malaise, Night Sweats, Weakness, Fatigue, Weight Loss, Lethargy, Other Eyes: Denies: Pain, Vision change, Conjunctivae inflammation, Eyelid inflammation, Redness, Other ENT: Denies: Head Aches, Ear Pain, Dysphagia, Sinus Congestion, Post Nasal Drip, Sore Throat, Epistaxis, Other Symptoms Skin: Denies: Rash, Lesions, Jaundice, Bruising, Itching, Dry, Breakdown, Nail Changes, Other Pulmonary: Denies: Dyspnea, Cough, Pleuritic Chest Pain, Other Symptoms Cardiovascular: Denies: Chest Pain, Palpitations, Orthopnea, Paroxysmal Noc. Dyspnea, Edema, Lt Headedness, Other Symptoms Gastrointestinal: Denies: Nausea, Vomiting, Abdominal Pain, Diarrhea, Constipation, Melena, Hematochezia, Other Symptoms Musculoskeletal: Denies: Neck Pain, Back Pain, Shoulder Pain, Arm Pain, Hand Pain, Leg Pain, Foot Pain, Joint Pain, Muscle Pain, Spasms, Other Symptoms Neurological: Denies: Weakness, Numbness, Incoordination, Change in speech, Con fusion, Seizures, Other Symptoms Objective Physical Examination General Exam: Positive: Alert, Cooperative Eye Exam: Positive: PERRLA, Conjunctiva & lids normal Neck Exam: Positive: Supple Chest Exam: Positive: Other (, scattered crackles, () Heart Exam: Positive: Rate Normal, Normal S1, Normal S2 Abdomen Exam: Positive: Normal bowel sounds, Soft Skin Exam: Positive: Nl turgor and temperature Neuro Exam: Positive: Strength at 5/5 X4 ext, Sensation Intact Psych Exam: Positive: Mental status NL, Mood NL, Oriented x 3 Assessment /Plan Problems (1) HCAP (healthcare-associated pneumonia) Status: Acute Problem Text: Continue Zosyn as per orders, but DC vancomycin as MRSA screen is negative Continue IV fluids Repeat labs in a.m. Will get a repeat x-ray in a.m. Continue home meds (2) Liver mass Status: Acute Problem Text: Questionable liver mass on the CT chest Most likely resolved or resolving hematoma. It patient at the level laceration recently MRI of the abdomen with IV contrast is still pending . Reassurance done (3) Atrial fibrillation Status: Chronic Problem Text: Rate is under well control Continue present medications (4) Hypothyroid Status: Chronic Problem Text: Continue home meds (5) HTN (hypertension) Status: Chronic Problem Text: Continue home meds (6) Asthma Status: Chronic Problem Text: Stable continue home meds Plan/VTE VTE Prophylaxis Ordered?: Yes VS, I&O, 24H, Fishbone Vital Signs/I&O Vital Signs Date Time Temp Pulse Resp B/P (MAP) Pulse Ox O2 Delivery O2 Flow Rate FiO2 11/13/18 09:18 128/70 11/13/18 08:00 98.5 94 16 96 I&O- Last 24 Hours up to 6 AM 11/13/18 06:00 Intake Total 1460 ml Output Total 945 ml Balance 515 ml Laboratory Data 24H LABS Laboratory Tests 2 11/12/18 11:36: Bedside Glucose (Misc Panel) 123H 11/12/18 22:21: Bedside Glucose (Misc Panel) 115H 11/13/18 07:19: Vancomycin Level Trough 14.9 Microbiology Microbiology 11/11/18 Blood Culture - Preliminary, Resulted No growth after 24 hours . All specim... 11/11/18 Blood Culture - Preliminary, Resulted No growth after 24 hours . All specim... 11/12/18 Respiratory Virus Panel (PCR) (NAE) - Final, Complete Human Rhinovirus/Enterovirus 11/12/18 Gram Stain - Final, Resulted 11/12/18 Sputum Culture, Resulted Pending 11/11/18 MRSA Screen - Final, Complete 11/11/18 Urine Culture - Final, Complete ROSE PIMENTEL MD Nov 13, 2018 11:01
[2018-11-13] MEDS ORDERED: PROHANCE 279.3MG/ML 15ML VIAL (A9576) As Ordered ONE (18:20)
[2018-11-13] MEDS ORDERED: PROHANCE 279.3MG/ML 5ML VIAL (A9576) As Ordered ONE (18:20)
[2018-11-13] MEDS: HumaLOG INSULIN (NovoLOG) PER UNIT SC SCH (20:05)
[2018-11-13] MEDS: MIRALAX *UNIT DOSE* 17GM PACKET PO PRN (20:16)
[2018-11-13] MEDS: MONTELUKAST 10 MG TAB PO SCH (20:16)
--- NOTE | 2018-11-13 20:25 | REPVR ---
EXAM: MR Abdomen Without and With Contrast; Liver EXAM DATE/TIME: 11/13/2018 10:26 AM CLINICAL HISTORY: 73 years old, male; Injury or trauma; Follow-up exam; Blunt and laceration; Foreign body involvement not specified; Upper; Generalized; Injury details: Fall from 13 ft 3 weeks ago. Hospitalized at other facility; Patient HX: Per chart, HX fall 3 wks ago. Splenic laceration with open wound into cavity. Liver laceration, grade ii, with open wound into cavity. ; Additional info: Liver mass TECHNIQUE: Imaging protocol: MR Abdomen with and without intravenous contrast. Exam focused on the liver. Contrast material: PROHANCE; Contrast volume: 16 ml; Contrast route: IV; COMPARISON: LIVER US 04/13/2014 9:12 AM FINDINGS: Lungs: Compressive atelectasis at both lung bases with a small right pleural effusion. Liver: There is diffuse loss of hepatic signal on out of phase images in comparison to in phase images consistent with steatosis. No focal abnormalities demonstrated. Liver size is normal. There is a complex mass in the posterior aspect of the right lobe of the liver measuring 7.7 x 8.2 x 10.4 cm. The mass is predominantly low low signal on T1-weighted images with hyperintense and intermediate density foci demonstrated internally. T2-weighted imaging demonstrates complex internal texture with hyperintense, hypointense and intermediate signal intensity foci throughout. The lesion demonstrates a thickened rind. Post contrast imaging demonstrates the presence of a thick walled enhancing rind surrounding the mass as well as a densely arterial phase enhancing nodule within the mass measuring 3.3 cm which persists on delayed 10 minute imaging. The other internal complex components did not demonstrate any significant enhancement. Gallbladder and bile ducts: There are gallstones present. No evidence of cholecystitis demonstrated. Pancreas: Normal. Spleen: The spleen is intact. Kidneys and ureters: There is a bilobed septated cyst in the left kidney measuring 2.4 x 2.5 cm. Soft tissue inflammation is demonstrated lateral to the right kidney likely related to prior trauma. Intraperitoneal space: Complex perihepatic fluid demonstrated posterior to the right lobe the liver adjacent to the hepatic mass likely posttraumatic. IMPRESSION: 1. There is diffuse loss of hepatic signal on out of phase images in comparison to in phase images consistent with steatosis. No focal abnormalities demonstrated. Liver size is normal. 2. Complex mass in the posterior aspect of the right lobe of the liver. Finding may be related to trauma and represent a large complex hematoma. A mass of other etiology or pre-existing mass with internal bleeding related to trauma not excluded. 3. The spleen is intact. 4. There is a bilobed septated cyst in the left kidney measuring 2.4 x 2.5 cm. 5. There are gallstones present. No evidence of cholecystitis demonstrated. 6. Complex perihepatic fluid demonstrated posterior to the right lobe the liver adjacent to the hepatic mass likely posttraumatic. 7. Soft tissue inflammation is demonstrated lateral to the right kidney likely related to prior trauma. COMMENT: Consistent with the [employer]'s Incidental Findings Committee Report (J Am Kaushik Radiol 2010): Unless the patient's specific circumstances suggest otherwise, any liver lesion 0.5 cm or less, any cystic kidney lesion less than 1.0 cm, and/or any adrenal lesion 1.0 cm or less not otherwise characterized in this report as possessing suspicious or indeterminate imaging features is/are highly likely to be benign and do not require follow-up imaging or biopsy. Electronically signed by: Manny Blake On 11/13/2018 20:24:36 PM
[2018-11-13] MEDS: traMADol 50 MG TAB PO PRN (21:27)
[2018-11-14] MEDS: PIPERACILLIN/TAZOBACTAM SOD 3.375 GM in D5W MINI-BAG PLUS 50 ML IV SCH ×4 (02:10→21:11)
[2018-11-14 04:00] VITALS: BP 125/59
[2018-11-14] MEDS: SLF 3 ML SYR IV SCH ×3 (05:27→21:11)
[2018-11-14 06:32] LABS: HEMATOCRIT 27.4 % (42.0-52.0); HEMOGLOBIN 8.7 g/dl (13.5-17.5); MEAN CORPUSCULAR HEMOGLOBIN 28.8 pg (27.0-33.0); MEAN CORPUSCULAR HGB CONC 31.8 g/dl (32.0-36.5); MEAN CORPUSCULAR VOLUME 90.7 fl (80.0-96.0); PLATELET COUNT, AUTOMATED 256 10^3/uL (150-450); RED BLOOD COUNT 3.02 10^6/uL (4.30-6.10); WHITE BLOOD COUNT 9.5 10^3/uL (4.0-10.0)
[2018-11-14 06:52] LABS: BLOOD UREA NITROGEN 11 MG/DL (7-18); CALCIUM LEVEL 8.3 MG/DL (8.8-10.2); CARBON DIOXIDE LEVEL 27 MEQ/L (21-32); CHLORIDE LEVEL 105 MEQ/L (98-107); CREATININE FOR GFR 0.83 MG/DL (0.70-1.30); GLOMERULAR FILTRATION RATE > 60.0 (>42); GLUCOSE, FASTING 116 MG/DL (70-100); MAGNESIUM LEVEL 2.2 MG/DL (1.8-2.4); POTASSIUM SERUM 3.8 MEQ/L (3.5-5.1); SODIUM LEVEL 139 MEQ/L (136-145)
[2018-11-14] MEDS: ADVAIR HFA 230/21MCG INHALER INH SCH ×2 (07:10→19:29)
[2018-11-14 08:00] VITALS: BP 131/66
[2018-11-14] MEDS: METOPROLOL SUCC *XL* 25MG TAB (TopROL *XL*) PO SCH (08:21)
[2018-11-14] MEDS: OMEPRAZOLE 20 MG CAP PO SCH (08:21)
[2018-11-14] MEDS: LISINOPRIL 5 MG TAB PO SCH (08:21)
[2018-11-14] MEDS: RIVAROXABAN 15 MG TAB (XARELTO) PO SCH ×2 (08:21→21:11)
[2018-11-14] MEDS: PRAVASTATIN 10 MG TAB PO SCH (08:21)
[2018-11-14] MEDS: DOCUSATE SODIUM 100 MG CAP PO SCH ×2 (08:21→21:11)
--- NOTE | 2018-11-14 09:17 | REP ---
Portable chest, 11/14/2018, single AP view with the the patient upright: Comparisons are the portable chest dated 11/11/[address] dated 04/12/2018. The patient has known multiple right rib fractures. The right lung atelectasis and pleural effusion have increased in size. There is no pneumothorax. Left lung is clear. Cardiac size is normal. The gallo and mediastinum are unremarkable. Impression: Increasing right lung atelectasis and infiltrate. No pneumothorax. Multiple right rib fractures. Electronically Signed by Brayan Small MD 11/14/2018 09:10 A
--- NOTE | 2018-11-14 11:06 | IPNPDOC ---
Subjective Date Seen The patient was seen on 11/14/18. Subjective Chief Complaint/HPI Patient is comfortable in no distress. Offers no new complaints General: Denies: ROS Unobtainable, Chills, Night Sweats, Fatigue, Malaise, Normal Appetite, Other Symptoms Constitutional: Denies: Chills, Fever, Malaise, Night Sweats, Weakness, Fatigue, Weight Loss, Lethargy, Other Eyes: Denies: Pain, Vision change, Conjunctivae inflammation, Eyelid inflammation, Redness, Other ENT: Denies: Head Aches, Ear Pain, Dysphagia, Sinus Congestion, Post Nasal Dri p, Sore Throat, Epistaxis, Other Symptoms Skin: Denies: Rash, Lesions, Jaundice, Bruising, Itching, Dry, Breakdown, Nail Changes, Other Pulmonary: Denies: Dyspnea, Cough, Pleuritic Chest Pain, Other Symptoms Cardiovascular: Denies: Chest Pain, Palpitations, Orthopnea, Paroxysmal Noc. Dyspnea, Edema, Lt Headedness, Other Symptoms Gastrointestinal: Denies: Nausea, Vomiting, Abdominal Pain, Diarrhea, Constipation, Melena, Hematochezia, Other Symptoms Musculoskeletal: Denies: Neck Pain, Back Pain, Shoulder Pain, Arm Pain, Hand Pain, Leg Pain, Foot Pain, Joint Pain, Muscle Pain, Spasms, Other Symptoms Neurological: Denies: Weakness, Numbness, Incoordination, Change in speech, Confusion, Seizures, Other Symptoms Objective Physical Examination General Exam: Positive: Alert, Cooperative Eye Exam: Positive: PERRLA, Conjunctiva & lids normal Neck Exam: Positive: Supple Chest Exam: Positive: Other (, scattered crackles, () Heart Exam: Positive: Rate Normal, Normal S1, Normal S2 Abdomen Exam: Positive: Normal bowel sounds, Soft Skin Exam: Positive: Nl turgor and temperature Neuro Exam: Positive: Strength at 5/5 X4 ext, Sensation Intact Psych Exam: Positive: Mental status NL, Mood NL, Oriented x 3 Assessment /Plan Problems (1) HCAP (healthcare-associated pneumonia) Status: Acute Problem Text: Continue Zosyn as per orders, but DC vancomycin as MRSA screen is negative DC IV fluids Once patient is afebrile for 24 hours. He will be discharged home on by mouth Augmentin Patient and his were informed about the current management and they agree with the plan (2) Liver mass Status: Acute Problem Text: MRI of the abdomen was done . There is complex hematoma, right-sided the liver secondary to liver laceration and trauma Patient and were informed about the MRI report and copy was provided (3) Atrial fibrillation Status: Chronic Problem Text: Rate is under well control Continue present medications (4) Hypothyroid Status: Chronic Problem Text: Continue home meds (5) HTN (hypertension) Status: Chronic Problem Text: Continue home meds (6) Asthma Status: Chronic Problem Text: Stable continue home meds Plan/VTE VTE Prophylaxis Ordered?: Yes VS, I&O, 24H, Fishbone Vital Signs/I&O Vital Signs Date Time Temp Pulse Resp B/P (MAP) Pulse Ox O2 Delivery O2 Flow Rate FiO2 11/14/18 08:21 130/72 11/14/18 08:00 98.2 82 18 97 I&O- Last 24 Hours up to 6 AM 11/14/18 06:00 Intake Total 590 ml Output Total 650 ml Balance -60 ml Laboratory Data 24H LABS Laboratory Tests 2 11/13/18 11:43: Bedside Glucose (Misc Panel) 135H 11/13/18 17:17: Bedside Glucose (Misc Panel) 93 11/13/18 19:51: Bedside Glucose (Misc Panel) 111H 11/14/18 06:18: Nucleated Red Blood Cells % (auto) 0.0, Anion Gap 7L, Glomerular Filtration Rate > 60.0, Blood Urea Nitrogen 11, Creatinine 0.83, Sodium Level 139, Potassium Level 3.8, Chloride Level 105, Carbon Dioxide Level 27, Calcium Level 8.3L, Magnesium Level 2.2 CBC/BMP Laboratory Tests 11/14/18 06:18 Red Blood Count 3.02 L, Mean Corpuscular Volume 90.7, Mean Corpuscular Hem oglobin 28.8, Mean Corpuscular Hemoglobin Concent 31.8 L, Red Cell Distribution Width 14.5, Calcium Level 8.3 L Microbiology Microbiology 11/11/18 Blood Culture - Preliminary, Resulted No Growth after 48 hours. All Specime... 11/11/18 Blood Culture - Preliminary, Resulted No Growth after 48 hours. All Specime... 11/12/18 Respiratory Virus Panel (PCR) (NAE) - Final, Complete Human Rhinovirus/Enterovirus 11/12/18 Gram Stain - Final, Complete 11/12/18 Sputum Culture - Final, Complete Yeast Like Organism 11/11/18 MRSA Screen - Final, Complete 11/11/18 Urine Culture - Final, Complete ROSE PIMENTEL MD Nov 14, 2018 11:06
[2018-11-14 12:00] VITALS: BP 133/66
[2018-11-14 14:55] LABS: LEGIONELLA ANTIGEN URINE Negative (Negative); MYCOPLASMA PNEUMONIAE IgM <770 U/mL (0-769)
[2018-11-14 15:30] VITALS: BP 121/56
[2018-11-14 20:00] VITALS: BP 153/70
[2018-11-14] MEDS: HumaLOG INSULIN (NovoLOG) PER UNIT SC SCH (21:00)
[2018-11-14] MEDS: MIRALAX *UNIT DOSE* 17GM PACKET PO PRN (21:11)
[2018-11-14] MEDS: MONTELUKAST 10 MG TAB PO SCH (21:11)
[2018-11-14] MEDS: traMADol 50 MG TAB PO PRN (21:11)
[2018-11-14 23:59] VITALS: BP 128/68
[2018-11-15] MEDS: PIPERACILLIN/TAZOBACTAM SOD 3.375 GM in D5W MINI-BAG PLUS 50 ML IV SCH ×2 (02:11→08:37)
[2018-11-15] MEDS: SLF 3 ML SYR IV SCH (02:11)
[2018-11-15] MEDS: ACETAMINOPHEN TAB 650MG DOSE (2X325MG) PO PRN (03:31)
[2018-11-15 04:00] VITALS: BP 140/66
[2018-11-15 04:45] LABS: BASO % 0.5 % (0.0-1.0); EOS # 0.1 10^3/uL (0.0-0.50); HEMATOCRIT 25.5 % (42.0-52.0); HEMOGLOBIN 8.1 g/dl (13.5-17.5); MEAN CORPUSCULAR HEMOGLOBIN 27.8 pg (27.0-33.0); MEAN CORPUSCULAR HGB CONC 31.8 g/dl (32.0-36.5); MEAN CORPUSCULAR VOLUME 87.6 fl (80.0-96.0); MONO # 1.2 10^3/uL (0.0-0.8); MONO % 13.4 % (0.0-5.0); NEUTROPHILS # 6.5 10^3/uL (1.8-7.7); NEUTROPHILS % 73.6 % (36.0-66.0); PLATELET COUNT, AUTOMATED 296 10^3/uL (150-450); RED BLOOD COUNT 2.91 10^6/uL (4.30-6.10); WHITE BLOOD COUNT 8.8 10^3/uL (4.0-10.0)
[2018-11-15 04:59] LABS: ALT/SGPT 54 U/L (12-78); BILIRUBIN,TOTAL 1.9 MG/DL (0.2-1.0); BLOOD UREA NITROGEN 11 MG/DL (7-18); CALCIUM LEVEL 8.3 MG/DL (8.8-10.2); CARBON DIOXIDE LEVEL 27 MEQ/L (21-32); CHLORIDE LEVEL 105 MEQ/L (98-107); CREATININE FOR GFR 0.79 MG/DL (0.70-1.30); GLOMERULAR FILTRATION RATE > 60.0 (>42); GLUCOSE, FASTING 99 MG/DL (70-100); POTASSIUM SERUM 3.7 MEQ/L (3.5-5.1); SODIUM LEVEL 137 MEQ/L (136-145); TOTAL PROTEIN 6.3 GM/DL (6.4-8.2)
[2018-11-15] MEDS: ADVAIR HFA 230/21MCG INHALER INH SCH (07:10)
[2018-11-15 08:00] VITALS: BP 134/63
[2018-11-15 08:36] VITALS: BP 134/63
[2018-11-15] MEDS: METOPROLOL SUCC *XL* 25MG TAB (TopROL *XL*) PO SCH (08:36)
[2018-11-15] MEDS: DOCUSATE SODIUM 100 MG CAP PO SCH (08:36)
[2018-11-15] MEDS: RIVAROXABAN 15 MG TAB (XARELTO) PO SCH (08:36)
[2018-11-15] MEDS: OMEPRAZOLE 20 MG CAP PO SCH (08:36)
[2018-11-15] MEDS: PRAVASTATIN 10 MG TAB PO SCH (08:36)
[2018-11-15] MEDS: LISINOPRIL 5 MG TAB PO SCH (08:37)
[2018-11-15] MEDS: traMADol 50 MG TAB PO PRN (08:44)
[2018-11-15] MEDS ORDERED: AUGM875T28 PO (10:19)
--- NOTE | 2018-11-15 11:11 | DS.PDOC ---
Discharge Summary General Date of Admission Nov 11, 2018 at 20:23 Date of Discharge 11/15/18 Discharge Summary PROCEDURES PERFORMED DURING STAY: None. ADMITTING DIAGNOSES: 1. Hospital acquired pneumonia, multi systemic trauma. DISCHARGE DIAGNOSES: 1. Hospital-acquired pneumonia, liver hematoma, multi systemic trauma, atrial fibrillation. COMPLICATIONS/CHIEF COMPLAINT: Pneumonia. HISTORY OF PRESENT ILLNESS: HISTORY OF PRESENT ILLNESS: This is a 73 yo male who was recently admitted at [facility] after falling from a tree branch. He came in today for fever last night and this morning. Of Note when he was admitted to [facility], after the fall he was dx with hypovolemic shock, subcutaneous emphysema, traumatic pneumothorax, met acidosis with increased AG, closed fracture of multiple ribs on right side, pneumomediastinum, splenic laceration with open wound into cavity, liver laceration grade II with open wound into cavity, and traumatic hemoperitoneum. A chest tube was placed ( patient said on both sides) and he was admitted to icu . He also developed sbo and afib with rvr and ?pneumonia. Later patient became more dyspnic and a CTA revealed a small PE in the right pulm artery. Blood cx grew ecoli. He was seen and treated by multiple specialists and was dc yesterday 11/10/18. Thorough details of this visit should be scanned into patient's chart. So he was dc on xeralto for afib//PE and levaquin for 7 days, along with other meds for his chronic med hx . He developed fever less than 24 hours after dc . He has a very productive cough, but is having difficulty with expectorating it. Patient denied headache, chest pain, sob, back pain, nausea, vomiting , abd pain, constipation or diarrhea . HOSPITAL COURSE: [[facility] patient was admitted with the diagnoses of hospital- acquired pneumonia as he was recently discharged from [facility] in [place]. Patient was started on Vanco and Zosyn and on CT chest, a possible right lower lobe infiltrate and on left lower lobe, possible bronchitis was noted. Patient was rhinovirus positive on his screening. US continue present IV antibiotics. Repeat chest x-ray was done which did not show much change, but the pro-calcitonin were negative. Patient's blood work shows CBC within normal limit with no WBC increase patient is clinically stable and can be discharged home on by mouth Augmentin. Patient also was found to have a mass in the liver. MRI of the abdomen and pelvis was obtained which showed a possible hematoma. Patient will be discharged home and will follow with PCP in one week and will continue all home medications as prescribed from a [facility] in [place] and Augmentin prescribed from us. DISCHARGE MEDICATIONS: Please see below. ALLERGIES: Please see below. PHYSICAL EXAMINATION ON DISCHARGE: VITAL SIGNS: Please see below. GENERAL: Within normal limits HEENT: PERRLA NECK: Supple CARDIOVASCULAR EXAMINATION: S1, S2, regular RESPIRATORY EXAMINATION: Clear to A&P ABDOMINAL EXAMINATION: , Soft, nontender, bowel sound present EXTREMITIES: No clubbing, cyanosis, edema SKIN: Within normal limits NEUROLOGICAL EXAMINATION: . No focal motor sensory deficit PSYCHIATRIC EXAMINATION: Within normal limits LABORATORY DATA: Please see below. IMAGING: CT chest:IMPRESSION: 1. There is a small right pleural effusion, possibly loculated on the right. Small left pleural effusion. Slight increased density demonstrated in components of the fluid to represent hemorrhage. 2. There is a parenchymal infiltrate in the right lower lobe with air bronchograms likely atelectatic although infection should be excluded clinically. 3. Thickened airways demonstrated in the left lower lobe may indicate the presence of peribronchial inflammation and bronchitis. 4. Soft tissue air demonstrated anterior to the right pectoralis muscle, right lateral chest wall, and anterior to the left pectoralis muscle. Findings likely related to the presence of rib fractures and/or recent removal of chest tubes. 5. Fractures demonstrated in the right first and 10th ribs. Fractures demonstrated in the left first rib. 6. There is a hypoattenuating mass with foci of increased attenuation demonstrated in the posterior aspect of the right lobe of the liver measuring approximately 5.9 x 10.3 x 8.1 cm. PROGNOSIS: Good ACTIVITY: As tolerated. DIET: As tolerated DISCHARGE PLAN: Follow with PCP in one week DISPOSITION: . Home DISCHARGE INSTRUCTIONS: 1. As per discharge instructions. ITEMS TO FOLLOWUP ON ON OUTPATIENT: 1. Follow with PCP in one week. DISCHARGE CONDITION: Stable. TIME SPENT ON DISCHARGE: 45 minutes. Vital Signs/I&Os Vital Signs Date Time Temp Pulse Resp B/P (MAP) Pulse Ox O2 Delivery O2 Flow Rate FiO2 11/15/18 09:14 17 11/15/18 08:36 80 134/63 11/15/18 08:00 97.7 97 I&O- Last 24 Hours up to 6 AM 11/15/18 06:00 Intake Total 730 ml Output Total 600 ml Balance 130 ml Laboratory Data Labs 24H Laboratory Tests 2 11/14/18 11:18: Bedside Glucose (Misc Panel) 99 11/14/18 16:59: Bedside Glucose (Misc Panel) 118H 11/14/18 20:09: Bedside Glucose (Misc Panel) 109 11/15/18 04:07: Immature Granulocyte % (Auto) 0.5, White Blood Count 8.8, Red Blood Count 2.91L, Hemoglobin 8.1L, Hematocrit 25.5L, Mean Corpuscular Volume 87.6, Mean Corpus cular Hemoglobin 27.8, Mean Corpuscular Hemoglobin Concent 31.8L, Red Cell Distribution Width 14.6H, Platelet Count 296, Neutrophils (%) (Auto) 73.6H, Lymphocytes (%) (Auto) 11.0L, Monocytes (%) (Auto) 13.4H, Eosinophils (%) (Auto) 1.0, Basophils (%) (Auto) 0.5, Neutrophils # (Auto) 6.5, Lymphocytes # (Auto) 1.0L, Monocytes # (Auto) 1.2H, Eosinophils # (Auto) 0.1, Basophils # (Auto) 0.0, Nucleated Red Blood Cells % (auto) 0.0, Anion Gap 5L, Glomerular Filtration Rate > 60.0, Blood Urea Nitrogen 11, Creatinine 0.79, Sodium Level 137, Potassium Level 3.7, Chloride Level 105, Carbon Dioxide Level 27, Calcium Level 8.3L, Aspartate Amino Transf (AST/SGOT) 45H, Alanine Aminotransferase (ALT/SGPT) 54, Alkaline Phosphatase 270H, Total Bilirubin 1.9H, Total Protein 6.3L, Albumin 2.0L, Albumin/Globulin Ratio 0.47L CBC/BMP Laboratory Tests 11/15/18 04:07 Red Blood Count 2.91 L, Mean Corpuscular Volume 87.6, Mean Corpuscular Hemoglobin 27.8, Mean Corpuscular Hemoglobin Concent 31.8 L, Red Cell Distribution Width 14.6 H, Neutrophils (%) (Auto) 73.6 H, Lymphocytes (%) (Auto) 11.0 L, Monocytes (%) (Auto) 13.4 H, Eosinophils (%) (Auto) 1.0, Basophils (%) (Auto) 0.5, Neutrophils # (Auto) 6.5, Lymphocytes # (Auto) 1.0 L, Monocytes # (Auto) 1.2 H, Eosinophils # (Auto) 0.1, Basophils # (Auto) 0.0, Calcium Level 8.3 L, Aspartate Amino Transf (AST/SGOT) 45 H, Alanine Aminotransferase (ALT/SGPT) 54, Alkaline Phosphatase 270 H, Total Bilirubin 1.9 H, Total Protein 6.3 L, Albumin 2.0 L FSBS Laboratory Tests Test 11/14/18 11:18 11/14/18 16:59 11/14/18 20:09 Range/Units Bedside Glucose (Misc Panel) 99 118 109 83-110 MG/DL Microbiology Microbiology 11/11/18 Blood Culture - Preliminary, Resulted No Growth after 72 hours. All specime... 11/11/18 Blood Culture - Preliminary, Resulted No Growth after 72 hours. All specime... 11/12/18 Respiratory Virus Panel (PCR) (NAE) - Final, Complete Human Rhinovirus/Enterovirus 11/12/18 Gram Stain - Final, Complete 11/12/18 Sputum Culture - Final, Complete Yeast Like Organism 11/11/18 MRSA Screen - Final, Complete 11/11/18 Urine Culture - Final, Complete Discharge Medications Scheduled Amoxicillin/Potassium Clav (Augmentin 875-125 Tablet) 1 Each Tablet, 1 TAB PO BID Aspirin (Aspirin) 325 Mg Tablet, 325 MG PO DAILY, (Reported) Fluticasone Propionate (Flonase Allergy Relief) 50 Mcg/Act Spr, 50 MCG NA DAILY, (Reported) Levofloxacin (Levofloxacin) 750 Mg Tablet, 750 MG PO DAILY, (Reported) PT STARTED 7 DAY COURSE ON 11/11 Lisinopril (Lisinopril) 5 Mg Tab, 5 MG PO DAILY, (Reported) Metformin HCl (Metformin HCl) 500 Mg Tab, 500 MG PO DAILY, (Reported) Metoprolol Succinate (Metoprolol Succinate) 25 Mg Tab.er.24h, 25 MG PO DAILY, (Reported) Montelukast Sodium (Montelukast Sodium) 10 Mg Tablet, 10 MG PO QHS, (Reported) Omeprazole (Omeprazole) 40 Mg Cap, 40 MG PO DAILY, (Reported) Pravastatin Sodium (Pravastatin Sodium) 10 Mg Tablet, 10 MG PO DAILY, (Reported) Rivaroxaban (Xarelto) 15 Mg Tablet, 15 MG PO BID, (Reported) PT IS TAKING 15MG BID UNTIL 11/30/18 WHEN HE IS TO TAPER TO 20MG DAILY Rivaroxaban (Xarelto) 20 Mg Tablet, 20 MG PO DAILY, (Reported) WITH DINNER. NOT TO START UNTIL 11/30/18 Salmeterol/Fluticasone (Advair 500-50 Diskus) 1 Each Blst.w.dev, 1 PUFF INH BID, (Reported) Scheduled PRN Tramadol HCl (Tramadol HCl) 50 Mg Tablet, 50 MG PO Q6HP PRN for pain, (Reported) Allergies Coded Allergies: celecoxib (Verified Adverse Reaction, Intermediate, LIVER DAMAGE, 11/11/18) ROSE PIMENTEL MD Nov 15, 2018 11:10
[2018-11-15 12:00] VITALS: BP 139/70
== END 2018-11-15 13:43 | disposition home health service (06) | DRG 194 ==
LOC: M ED 14:49 → M ED INP 20:23 → M PCU 21:26
PROVIDERS: ADMIT Internal Medicine; ATTEND Internal Medicine
DX: J18.9 Pneumonia, unspecified organism (principal); J98.11 Atelectasis; I10 Essential (primary) hypertension; E11.9 Type 2 diabetes mellitus without complications; E03.9 Hypothyroidism, unspecified; I48.2 Chronic atrial fibrillation; J45.909 Unspecified asthma, uncomplicated; Y95 Nosocomial condition; K76.89 Other specified diseases of liver; Z79.82 Long term (current) use of aspirin; Z79.01 Long term (current) use of anticoagulants; Z79.84 Long term (current) use of oral hypoglycemic drugs; Z79.899 Other long term (current) drug therapy; Z88.8 Allergy status to other drugs, medicaments and biological substances; S22.41XD Multiple fractures of ribs, right side, subsequent encounter for fracture with routine healing; S22.32XD Fracture of one rib, left side, subsequent encounter for fracture with routine healing; W14.XXXD Fall from tree, subsequent encounter; Y92.9 Unspecified place or not applicable

== ENCOUNTER 2019-07-04 11:59 | Emergency (ER) | payer MEDICARE ==
[~2019-07-04] VITALS: Ht 172.7 cm; Wt 90.1 kg
[~2019-07-04 11:59] MED LIST changes: +ADV500INH INH; +ASPI-1 PO; +ASPIRIN PO; +AUGM875T28 PO; +LEVO750T13 PO; +METO1TAB32 PO; +MONT10TA4 PO; -OMEP40CA2 PO; +OMEP40CA97 PO; +PRAV10TA3 PO; +RANI300C PO; +SPIR1CAP INH; +TRAM50TA2 PO; +XARE15TA PO; +XARE20TA PO
[2019-07-04] MEDS ORDERED: CIPR500T3 PO (12:09)
[2019-07-04] MEDS ORDERED: SODI10SO14 OU (12:20)
[2019-07-04] MEDS ORDERED: VITA500079 PO (12:20)
[2019-07-04 12:47] LABS: BASO # 0.1 10^3/uL (0.0-0.2); BASO % 0.3 % (0.0-1.0); EOS # 0.1 10^3/uL (0.0-0.5); EOS % 0.4 % (0.0-3.0); HEMATOCRIT 45.4 % (42.0-52.0); HEMOGLOBIN 15.2 g/dl (13.5-17.5); LYMPH % 12.4 % (24.0-44.0); MEAN CORPUSCULAR HEMOGLOBIN 28.7 pg (27.0-33.0); MEAN CORPUSCULAR HGB CONC 33.5 g/dl (32.0-36.5); MEAN CORPUSCULAR VOLUME 85.8 fl (80.0-96.0); MONO # 1.8 10^3/uL (0.0-0.8); MONO % 11.2 % (0.0-5.0); NEUTROPHILS # 12.4 10^3/uL (1.5-8.5); NEUTROPHILS % 75.4 % (36.0-66.0); PLATELET COUNT, AUTOMATED 200 10^3/uL (150-450); RED BLOOD COUNT 5.29 10^6/uL (4.30-6.10); WHITE BLOOD COUNT 16.5 10^3/uL (4.0-10.0)
[2019-07-04 12:58] LABS: INR 1.36; PROTHROMBIN TIME 16.5 SECONDS (11.8-14.0)
[2019-07-04 13:46] VITALS: BP 146/84
--- NOTE | 2019-07-04 14:14 | REP ---
REASON FOR EXAM: Hematuria. COMPARISON: 01/26/2008 There is a pleural-based irregular nodule in the right lower lobe which measures 1.5 cm and representing a change from the prior lung-based images. In the anterior segment of the right lobe of the liver there is a mixed density 5.9 cm sized mass lesion. There is cholelithiasis. The spleen, pancreas, adrenal glands, and right kidney are unremarkable. In the left kidney, there is a cyst which measures 4.4 cm in its greatest dimension. This has increased in size from the prior exam, however, it has water density Hounsfield unit readings. The abdominal aorta and para-aortic regions are essentially unchanged. The bowel loops and their mesenteries are within normal limits. There is no free fluid or free air. CT PELVIS: There is no mass or adenopathy. There is no free fluid or free air. There is a small infraumbilical ventral hernia through which mesentery protrudes and the aperture of which measures approximately 2.7 cm. This represents a change from prior exam. There is no pelvic mass or adenopathy. There is no free fluid or free air. Bone window technique throughout the examination shows chronic degenerative and postoperative changes. Patient is status post laminectomy with transpedicular screws placed L2 thorough L5, inclusive and bilaterally. IMPRESSION: 1. There is a mass in the liver, as described above, which represents a change from the prior exam. Neoplasm versus abscess difficult to evaluate without intravenous contrast. 2. Cholelithiasis. 3. Left renal cyst. 4. Other findings as described above. Electronically Signed by David Carlson DO 07/04/2019 02:26 P
--- NOTE | 2019-07-06 12:06 | ED PDOC ---
Post-Departure Follow-Up ulcio khan faxed formal report of ct abd/p for fu Juan Alberto Dale MD Jul 06, 2019 12:06
== END 2019-07-04 13:48 | disposition home or self-care (01) ==
LOC: M ED 11:59
DX: N39.0 Urinary tract infection, site not specified (principal); K76.89 Other specified diseases of liver; N28.1 Cyst of kidney, acquired; I48.91 Unspecified atrial fibrillation; E11.9 Type 2 diabetes mellitus without complications; I10 Essential (primary) hypertension; R51 Headache; J45.909 Unspecified asthma, uncomplicated; K21.9 Gastro-esophageal reflux disease without esophagitis; N40.0 Benign prostatic hyperplasia without lower urinary tract symptoms; E03.9 Hypothyroidism, unspecified; M54.9 Dorsalgia, unspecified; F41.9 Anxiety disorder, unspecified; Z79.899 Other long term (current) drug therapy; Z88.6 Allergy status to analgesic agent

== ENCOUNTER → 2019-08-17 | Outpatient (REF) | payer MEDICARE ==
[~2019-08-17] MED LIST changes: +CIPR500T3 PO; +SODI10SO14 OU; +VITA500079 PO
[2019-08-17 18:02] LABS: BASO % 0.4 % (0.0-1.0); EOS % 0.1 % (0.0-3.0); HEMATOCRIT 46.3 % (42.0-52.0); HEMOGLOBIN 15.2 g/dl (13.5-17.5); LYMPH # 1.2 10^3/uL (1.5-5.0); LYMPH % 10.9 % (24.0-44.0); MEAN CORPUSCULAR HEMOGLOBIN 28.3 pg (27.0-33.0); MEAN CORPUSCULAR HGB CONC 32.8 g/dl (32.0-36.5); MEAN CORPUSCULAR VOLUME 86.1 fl (80.0-96.0); MONO # 0.6 10^3/uL (0.0-0.8); MONO % 5.3 % (0.0-5.0); NEUTROPHILS # 9.3 10^3/uL (1.5-8.5); NEUTROPHILS % 81.6 % (36.0-66.0); PLATELET COUNT, AUTOMATED 266 10^3/uL (150-450); RED BLOOD COUNT 5.38 10^6/uL (4.30-6.10); WHITE BLOOD COUNT 11.4 10^3/uL (4.0-10.0)
[2019-08-20 07:07] LABS: D001-IgE D pteronyssinus 0.27 kU/L (Class 0/I); E001-IgE Cat Epith/Dander < 0.10 kU/L (Class 0); E005-IgE Dog Dander < 0.10 kU/L (Class 0); G002-IgE Bermuda Grass < 0.10 kU/L (Class 0); G008-IgE Kentucky Bluegrass < 0.10 kU/L (Class 0); M001-IgE Penicillium chrysogen < 0.10 kU/L (Class 0); M002 IgE Cladosporium herbaru < 0.10 kU/L (Class 0); M003 IgE Aspergillus fumigatu < 0.10 kU/L (Class 0); M006-IgE Alternaria alternata < 0.10 kU/L (Class 0); T001-IgE Maple/Box Elder < 0.10 kU/L (Class 0); T003-IgE Common Silver Birch < 0.10 kU/L (Class 0); T006-IgE Cedar, Mountain < 0.10 kU/L (Class 0); T007-IgE Oak, White < 0.10 kU/L (Class 0); T008-IgE Elm, American < 0.10 kU/L (Class 0); T015-IgE Ash, White < 0.10 kU/L (Class 0); T041-IgE Hickory, White < 0.10 kU/L (Class 0); T070-IgE White Mulberry < 0.10 kU/L (Class 0); W001-IgE Ragweed, Short < 0.10 kU/L (Class 0); W009-IgE Plantain, English < 0.10 kU/L (Class 0); W014-IgE Pigweed, Rough < 0.10 kU/L (Class 0); W018-IgE Sheep Sorrel < 0.10 kU/L (Class 0)
== END ==
LOC: M LAB REF 16:37
PROVIDERS: ATTEND Internal Medicine Pulmonary Disease
DX: J45.40 Moderate persistent asthma, uncomplicated (principal)

== ENCOUNTER → 2019-10-22 | Outpatient (REF) | payer MEDICARE ==
[~2019-10-22] MED LIST changes: +AZIT-12 PO; +LEVO50TA5 PO; +METF-838 PO; +PRED20TA PO
[2019-11-16 11:57] LABS: BASO # 0.1 10^3/uL (0.0-0.2); EOS # 0.3 10^3/uL (0.0-0.5); EOS % 5.6 % (0.0-3.0); HEMATOCRIT 46.8 % (42.0-52.0); LYMPH # 1.7 10^3/uL (1.5-5.0); MEAN CORPUSCULAR HEMOGLOBIN 28.6 pg (27.0-33.0); MEAN CORPUSCULAR HGB CONC 32.1 g/dl (32.0-36.5); MEAN CORPUSCULAR VOLUME 89.1 fl (80.0-96.0); MONO # 0.5 10^3/uL (0.0-0.8); MONO % 8.2 % (0.0-5.0); NEUTROPHILS # 3.2 10^3/uL (1.5-8.5); PLATELET COUNT, AUTOMATED 235 10^3/uL (150-450); RED BLOOD COUNT 5.25 10^6/uL (4.30-6.10); WHITE BLOOD COUNT 5.7 10^3/uL (4.0-10.0)
[2019-11-16 11:59] LABS: ERYTHROCYTE SEDIMENTATION RATE 12 mm/hr (0-20)
[2019-12-09 12:42] LABS: IMMUNOGLOBULIN G 683 MG/DL (681-1648)
[2019-12-15 09:41] LABS: ANTI TETANUS ANTIBODY SEE SEPARATE REPORT; STREP PNEUMO TYPE 1 SEE SEPARATE REPORT
== END ==
LOC: M LABWUC 08:01
PROVIDERS: ATTEND Allergy & Immunology Allergy
DX: D84.9 Immunodeficiency, unspecified (principal)

== ENCOUNTER 2019-12-17 19:17 | Emergency (ER) | payer MEDICARE ==
[~2019-12-17] VITALS: Ht 170.2 cm; Wt 83.6 kg
[~2019-12-17 19:17] MED LIST changes: -AZIT-12 PO; -LEVO50TA5 PO; -METF-838 PO; -PRED20TA PO
[2019-12-17] MEDS ORDERED: METF-838 PO (19:31)
[2019-12-17] MEDS ORDERED: LEVO50TA5 PO (19:31)
[2019-12-17 19:57] LABS: BASO % 0.2 % (0.0-1.0); EOS # 0.1 10^3/uL (0.0-0.5); EOS % 0.3 % (0.0-3.0); HEMATOCRIT 46.4 % (42.0-52.0); LYMPH # 1.3 10^3/uL (1.5-5.0); LYMPH % 7.7 % (24.0-44.0); MEAN CORPUSCULAR HEMOGLOBIN 28.2 pg (27.0-33.0); MEAN CORPUSCULAR HGB CONC 32.3 g/dl (32.0-36.5); MEAN CORPUSCULAR VOLUME 87.2 fl (80.0-96.0); MONO # 1.4 10^3/uL (0.0-0.8); MONO % 8.5 % (0.0-5.0); NEUTROPHILS # 13.9 10^3/uL (1.5-8.5); NEUTROPHILS % 82.9 % (36.0-66.0); PLATELET COUNT, AUTOMATED 162 10^3/uL (150-450); RED BLOOD COUNT 5.32 10^6/uL (4.30-6.10); WHITE BLOOD COUNT 16.8 10^3/uL (4.0-10.0)
[2019-12-17] MEDS ORDERED: COMBIVENT RESPIMAT 100-20MCG INHALER 4GM INH ONE (20:00)
[2019-12-17] MEDS ORDERED: IBUPROFEN 800 MG TAB PO ONE (20:00)
[2019-12-17 20:21] LABS: ALBUMIN 3.4 GM/DL (3.2-5.2); ALT/SGPT 34 U/L (12-78); BILIRUBIN,DIRECT 0.5 MG/DL (0.0-0.2); BILIRUBIN,TOTAL 2.2 MG/DL (0.2-1.0); BLOOD UREA NITROGEN 18 MG/DL (7-18); CALCIUM LEVEL 8.9 MG/DL (8.8-10.2); CARBON DIOXIDE LEVEL 26 MEQ/L (21-32); CHLORIDE LEVEL 109 MEQ/L (98-107); CPK CREATINE PHOSPHOKINASE 95 U/L (39-308); CREATININE FOR GFR 1.12 MG/DL (0.70-1.30); GLOMERULAR FILTRATION RATE > 60.0 (>42); GLUCOSE, FASTING 117 MG/DL (70-100); MB/CK RELATIVE INDEX 1.05 (< OR =4); POTASSIUM SERUM 3.8 MEQ/L (3.5-5.1); SODIUM LEVEL 143 MEQ/L (136-145); TOTAL PROTEIN 6.6 GM/DL (6.4-8.2); TROPONIN I < 0.02 NG/ML (< 0.10)
--- NOTE | 2019-12-17 20:51 | REPVR ---
PROCEDURE INFORMATION: Exam: XR Chest, 1 View Exam date and time: 12/17/2019 7:36 PM Age: 74 years old Clinical indication: Shortness of breath; Additional info: Dyspnea/cough TECHNIQUE: Imaging protocol: XR of the chest Views: 1 view. COMPARISON: [facility] PORTABLE CHEST X-RAY 11/14/2018 8:40 AM FINDINGS: Lungs: Minimal linear atelectasis or scarring at the lung bases. Lungs are otherwise clear. No focal consolidation. Pleural space: Unremarkable. No pleural effusion. No pneumothorax. Heart/Mediastinum: Unremarkable. No cardiomegaly. Bones/joints: Multiple right rib fractures are once again noted. IMPRESSION: Minimal linear atelectasis or scarring at the lung bases. No consolidation. Electronically signed by: Fuad Leung On 12/17/2019 20:51:04 PM
[2019-12-17 22:30] VITALS: BP 151/78
[2019-12-17] MEDS ORDERED: PRED20TA PO (22:39)
[2019-12-17] MEDS ORDERED: AZIT-12 PO (22:39)
[2019-12-17] MEDS ORDERED: predniSONE 20 MG TAB PO ONE (22:45)
[2019-12-17] MEDS ORDERED: AZITHROMYCIN 250MG TABLET PO ONE (22:45)
--- NOTE | 2019-12-19 15:17 | ECGEPIP ---
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
== END 2019-12-17 22:48 | disposition home or self-care (01) ==
LOC: M ED 19:17
DX: J20.9 Acute bronchitis, unspecified (principal); R91.8 Other nonspecific abnormal finding of lung field; Z79.84 Long term (current) use of oral hypoglycemic drugs; Z79.899 Other long term (current) drug therapy; Z88.8 Allergy status to other drugs, medicaments and biological substances

== ENCOUNTER → 2020-02-01 | Outpatient (CLI) | payer MEDICARE ==
[~2020-02-01] MED LIST changes: +AZIT-12 PO; +LEVO50TA5 PO; +METF-838 PO; +PRED20TA PO
== END ==
LOC: M PLALAB 10:34
PROVIDERS: ATTEND Allergy & Immunology Allergy
DX: D83.9 Common variable immunodeficiency, unspecified (principal)

== ENCOUNTER → 2020-07-11 | Outpatient (REF) | payer MEDICARE ==
[~2020-07-11] MED LIST changes: -LISI-542 PO; +LISI-898 PO; +MONT10TA10 PO; -MONT10TA4 PO
== END ==
LOC: M LAB REF 12:27
PROVIDERS: ATTEND Internal Medicine Pulmonary Disease
DX: J45.50 Severe persistent asthma, uncomplicated (principal)

== ENCOUNTER → 2020-08-30 | Outpatient (REF) | payer MEDICARE | LOC: M LAB REF 17:18 | PROVIDERS: ATTEND Internal Medicine Pulmonary Disease | DX: J45.50 Severe persistent asthma, uncomplicated (principal) ==

== ENCOUNTER → 2020-08-30 | Outpatient (CLI) | payer MEDICARE ==
--- NOTE | 2020-08-31 04:38 | REPPI ---
INDICATION: J15.29 PNEUMONUA DUE TO OTHER STAPHYLOCOCCUS COMPARISON: 12/17/2019 TECHNIQUE: PA and lateral. FINDINGS: The mediastinum and cardiac silhouette are normal. The lung escalante demonstrate chronic appearing basilar changes without acute consolidation, effusion, or pneumothorax. The skeletal structures are intact and normal. IMPRESSION: No obvious acute cardiopulmonary process. <Electronically signed by Michele Monroy > 08/31/20 [id number]
== END ==
LOC: M PLAIMG 13:18
PROVIDERS: ATTEND Physician Assistant
DX: J15.29 Pneumonia due to other staphylococcus (principal); J45.50 Severe persistent asthma, uncomplicated

== ENCOUNTER → 2020-10-06 | Outpatient (REF) | payer MEDICARE ==
[~2020-10-06] MED LIST changes: +OMEP40CA4 PO; -OMEP40CA97 PO
== END ==
LOC: M LAB REF 12:52
PROVIDERS: ATTEND Internal Medicine Pulmonary Disease
DX: J45.40 Moderate persistent asthma, uncomplicated (principal)

== ENCOUNTER → 2020-11-23 | Outpatient (REF) | payer MEDICARE | LOC: M LAB REF 17:05 | PROVIDERS: ATTEND Internal Medicine Pulmonary Disease | DX: J45.50 Severe persistent asthma, uncomplicated (principal) ==

== ENCOUNTER → 2021-01-22 | Outpatient (REF) | payer MEDICARE | LOC: M LAB REF 17:48 | PROVIDERS: ATTEND Internal Medicine Pulmonary Disease | DX: J45.50 Severe persistent asthma, uncomplicated (principal) ==

== ENCOUNTER → 2021-02-13 | Outpatient (CLI) | payer MEDICARE ==
--- NOTE | 2021-02-13 12:06 | REP ---
INDICATION: CONTUSION OF LUNG, UNILATERAL, SUBSEQUENT ENCOUNTER COMPARISON: 08/30/2020 TECHNIQUE: PA and lateral. FINDINGS: The mediastinum and cardiac silhouette are normal. Subtle streaky changes at the left base suggest mild atelectasis. No discrete focal consolidation, effusion, or pneumothorax. Right hemithorax is clear. Nonacute right rib fractures again identified and unchanged.. IMPRESSION: Questionable subtle left basilar atelectasis. <Electronically signed by Michele Monroy > 02/13/21 [id number]
== END ==
LOC: M PLAIMG 10:30
PROVIDERS: ATTEND Internal Medicine Pulmonary Disease
DX: S27.321D Contusion of lung, unilateral, subsequent encounter (principal); J45.50 Severe persistent asthma, uncomplicated; X58.XXXD Exposure to other specified factors, subsequent encounter; Y92.9 Unspecified place or not applicable; Y93.9 Activity, unspecified; Y99.9 Unspecified external cause status

== ENCOUNTER → 2021-02-19 | Outpatient (REF) | payer MEDICARE ==
[~2021-02-19] MED LIST changes: -LISI-898 PO; +LISI5TAB11 PO; -MONT10TA10 PO; +MONT10TA97 PO
== END ==
LOC: M LAB REF 16:52
PROVIDERS: ATTEND Nurse Practitioner Adult Health
DX: J47.9 Bronchiectasis, uncomplicated (principal)

== ENCOUNTER → 2021-04-09 | Outpatient (REF) | payer MEDICARE | LOC: M LAB REF 17:06 | PROVIDERS: ATTEND Internal Medicine Pulmonary Disease | DX: J45.50 Severe persistent asthma, uncomplicated (principal) ==

== ENCOUNTER → 2021-05-04 | Outpatient (CLI) | payer MEDICARE | LOC: M WUC 10:49 | PROVIDERS: ATTEND Physician Assistant | DX: R91.8 Other nonspecific abnormal finding of lung field (principal); R06.02 Shortness of breath; Z87.828 Personal history of other (healed) physical injury and trauma ==

== ENCOUNTER → 2021-06-11 | Outpatient (REF) | payer MEDICARE | LOC: M LAB REF 12:39 | PROVIDERS: ATTEND Internal Medicine Pulmonary Disease | DX: J47.9 Bronchiectasis, uncomplicated (principal) ==

== ENCOUNTER → 2021-09-10 | Outpatient (REF) | payer MEDICARE ==
[~2021-09-10] MED LIST changes: +ALBU2.5V10 INH; -ALBU83IN INH
[2021-09-10 13:22] LABS: BASO % 0.3 % (0.0-1.0); EOS % 0.3 % (0.0-3.0); HEMATOCRIT 49.8 % (42.0-52.0); HEMOGLOBIN 16.1 g/dl (13.5-17.5); LYMPH # 1.2 10^3/uL (1.5-5.0); LYMPH % 10.8 % (24.0-44.0); MEAN CORPUSCULAR HEMOGLOBIN 29.8 pg (27.0-33.0); MEAN CORPUSCULAR HGB CONC 32.3 g/dl (32.0-36.5); MEAN CORPUSCULAR VOLUME 92.2 fl (80.0-96.0); MONO # 0.5 10^3/uL (0.0-0.8); MONO % 4.3 % (2.0-8.0); NEUTROPHILS % 82.6 % (36.0-66.0); PLATELET COUNT, AUTOMATED 214 10^3/uL (150-450); WHITE BLOOD COUNT 10.8 10^3/uL (4.0-10.0)
== END ==
LOC: M LAB REF 12:45
PROVIDERS: ATTEND Internal Medicine Pulmonary Disease
DX: J45.50 Severe persistent asthma, uncomplicated (principal)

== ENCOUNTER → 2021-10-08 | Outpatient (REF) | payer MEDICARE ==
[~2021-10-08] MED LIST changes: +LEVO1TAB40 PO; -LEVO750T13 PO
== END ==
LOC: M SFHCPLAZ 12:44
PROVIDERS: ATTEND Internal Medicine Infectious Disease
DX: J47.0 Bronchiectasis with acute lower respiratory infection (principal)

== ENCOUNTER → 2021-12-04 | Outpatient (CLI) | payer MEDICARE | LOC: M PLAIMG 09:37 | PROVIDERS: ATTEND Internal Medicine Infectious Disease | DX: J45.50 Severe persistent asthma, uncomplicated (principal); K80.20 Calculus of gallbladder without cholecystitis without obstruction; R91.8 Other nonspecific abnormal finding of lung field ==

== ENCOUNTER → 2022-01-17 | Outpatient (CLI) | payer MEDICARE | LOC: M WUC 13:05 | PROVIDERS: ATTEND Physician Assistant | DX: R06.02 Shortness of breath (principal); R60.0 Localized edema; R91.8 Other nonspecific abnormal finding of lung field; Z87.81 Personal history of (healed) traumatic fracture ==

== ENCOUNTER → 2022-02-25 | Outpatient (CLI) | payer MEDICARE ==
[2022-02-25 13:48] LABS: BASO # 0.1 10^3/uL (0.0-0.2); BASO % 0.5 % (0.0-1.0); EOS # 0.1 10^3/uL (0.0-0.5); EOS % 0.7 % (0.0-3.0); HEMATOCRIT 48.8 % (42.0-52.0); HEMOGLOBIN 15.6 g/dl (13.5-17.5); LYMPH # 1.8 10^3/uL (1.5-5.0); LYMPH % 14.5 % (24.0-44.0); MEAN CORPUSCULAR HEMOGLOBIN 28.6 pg (27.0-33.0); MEAN CORPUSCULAR VOLUME 89.5 fl (80.0-96.0); MONO # 1.2 10^3/uL (0.0-0.8); MONO % 9.9 % (2.0-8.0); NEUTROPHILS # 8.9 10^3/uL (1.5-8.5); NEUTROPHILS % 73.8 % (36.0-66.0); PLATELET COUNT, AUTOMATED 228 10^3/uL (150-450); RED BLOOD COUNT 5.45 10^6/uL (4.30-6.10); WHITE BLOOD COUNT 12.1 10^3/uL (4.0-10.0)
[2022-02-25 14:30] LABS: ALBUMIN 3.8 G/DL (3.2-5.2); BILIRUBIN,TOTAL 2.3 MG/DL (0.3-1.2); CALCIUM LEVEL 9.2 MG/DL (8.3-10.6); CHOLESTEROL RISK RATIO 5.66 (<5); CREATININE FOR GFR 1.28 MG/DL (0.70-1.30); GLOMERULAR FILTRATION RATE 57.9 (>42); HDL CHOLESTEROL 27.7 MG/DL (>40); LDL CHOLESTEROL 99.9 MG/DL (<100); TOTAL PROTEIN 6.9 G/DL (5.7-8.2)
== END ==
LOC: M WUC 10:38
PROVIDERS: ATTEND Physician Assistant
DX: R10.9 Unspecified abdominal pain (principal); Z87.81 Personal history of (healed) traumatic fracture; M47.816 Spondylosis without myelopathy or radiculopathy, lumbar region

== ENCOUNTER → 2022-03-01 | Outpatient (CLI) | payer MEDICARE | LOC: M RAD 10:18 | PROVIDERS: ATTEND Physician Assistant | DX: R10.9 Unspecified abdominal pain (principal); K80.20 Calculus of gallbladder without cholecystitis without obstruction; K76.0 Fatty (change of) liver, not elsewhere classified; R14.0 Abdominal distension (gaseous); N28.1 Cyst of kidney, acquired ==

== ENCOUNTER → 2022-03-04 | Outpatient (REF) | payer MEDICARE | LOC: M LAB REF 12:52 | PROVIDERS: ATTEND Internal Medicine Gastroenterology | DX: J45.50 Severe persistent asthma, uncomplicated (principal) ==

== ENCOUNTER → 2022-04-04 | Outpatient (REF) | payer MEDICARE | LOC: M LAB REF 17:04 | PROVIDERS: ATTEND Internal Medicine Pulmonary Disease | DX: J45.50 Severe persistent asthma, uncomplicated (principal) ==

== ENCOUNTER → 2022-05-15 | Outpatient (CLI) | payer MEDICARE ==
[~2022-05-15] MED LIST changes: +ASPI325T55 PO; +FAMO40TA3 PO; +FLEXALL; +FLUT1BLS IH; +VENTAER INH
[2022-05-15 16:33] LABS: BASO # 0.1 10^3/uL (0.0-0.2); BASO % 0.9 % (0.0-1.0); EOS # 0.2 10^3/uL (0.0-0.5); EOS % 3.1 % (0.0-3.0); HEMATOCRIT 44.4 % (42.0-52.0); HEMOGLOBIN 14.4 g/dl (13.5-17.5); LYMPH # 1.5 10^3/uL (1.5-5.0); LYMPH % 21.8 % (24.0-44.0); MEAN CORPUSCULAR HEMOGLOBIN 28.6 pg (27.0-33.0); MEAN CORPUSCULAR HGB CONC 32.4 g/dl (32.0-36.5); MEAN CORPUSCULAR VOLUME 88.3 fl (80.0-96.0); MONO # 0.6 10^3/uL (0.0-0.8); MONO % 8.5 % (2.0-8.0); NEUTROPHILS # 4.4 10^3/uL (1.5-8.5); NEUTROPHILS % 65.4 % (36.0-66.0); PLATELET COUNT, AUTOMATED 188 10^3/uL (150-450); RED BLOOD COUNT 5.03 10^6/uL (4.30-6.10); WHITE BLOOD COUNT 6.7 10^3/uL (4.0-10.0)
[2022-05-15 17:02] LABS: ALBUMIN 3.5 G/DL (3.2-5.2); ALKALINE PHOSPHATASE 85 U/L (46-116); ALT/SGPT 34 U/L (7.0-40); AST/SGOT 23 U/L (<34); BILIRUBIN,TOTAL 1.5 MG/DL (0.3-1.2); BLOOD UREA NITROGEN 13 MG/DL (9-23); CALCIUM LEVEL 9.3 MG/DL (8.3-10.6); CARBON DIOXIDE LEVEL 26 MMOL/L (20-31); CHLORIDE LEVEL 109 MMOL/L (98-107); CREATININE FOR GFR 0.99 MG/DL (0.70-1.30); GLOMERULAR FILTRATION RATE > 60.0 (>42); GLUCOSE, FASTING 95 MG/DL (74-106); POTASSIUM SERUM 4.5 MMOL/L (3.5-5.1); SODIUM LEVEL 141 MMOL/L (136-145)
[2022-05-15 19:02] LABS: TOTAL PROTEIN 6.4 G/DL (5.7-8.2)
== END ==
LOC: M WUC 12:33
PROVIDERS: ATTEND Physician Assistant
DX: Z01.818 Encounter for other preprocedural examination (principal)

== ENCOUNTER → 2022-05-20 | Outpatient (CLI) | payer MEDICARE | LOC: M LABSMTC 10:21 | PROVIDERS: ATTEND Anesthesiology | DX: Z01.812 Encounter for preprocedural laboratory examination (principal) ==

== ENCOUNTER → 2022-05-23 | Outpatient (REF) | payer MEDICARE ==
[~2022-05-23] MED LIST changes: +ACET-907 PO; +FLUT1BLS2 INH; +MUCI600T31 PO; +POTA1TAB23 PO; +TADA5TAB PO; +TORS10TA3 PO
== END ==
LOC: M LAB REF 16:50
PROVIDERS: ATTEND Internal Medicine Pulmonary Disease
DX: J45.50 Severe persistent asthma, uncomplicated (principal)

== ENCOUNTER 2022-05-24 06:13 | Day surgery (SDC) | payer MEDICARE ==
[~2022-05-24] VITALS: Ht 172.7 cm; Wt 81.6 kg
[~2022-05-24 06:13] MED LIST changes: -ACET-907 PO; -FLUT1BLS2 INH; -MUCI600T31 PO; -POTA1TAB23 PO; -TADA5TAB PO; -TORS10TA3 PO; +ceFAZolin SOD 2 GM in IV 1 EA IV ONE
[2022-05-24] MEDS ORDERED: BUPIVACAINE HCL 0.25% 10ML VIAL As Ordered ONE (06:36)
[2022-05-24] MEDS ORDERED: BUPIVACAINE/EPIN 0.25% 30ML VIAL As Ordered ONE (06:36)
[2022-05-24] MEDS ORDERED: BUPIVACAINE LIPOSOME/PF 1.3% 20ML VIAL (13.3MG/ML)(EXPAREL) As Ordered ONE (06:37)
[2022-05-24] MEDS ORDERED: fentaNYL 100 MCG/2 ML INJECTION As Ordered ONE ×2 (06:44→08:47)
[2022-05-24] MEDS ORDERED: MIDAZOLAM INJ 2MG/2ML VIAL As Ordered ONE (06:45)
[2022-05-24] MEDS ORDERED: propofoL 200 MG/20 ML VIAL As Ordered ONE (06:46)
[2022-05-24] MEDS ORDERED: ROCURONIUM BROMIDE 50MG/5ML VIAL As Ordered ONE (06:46)
[2022-05-24] MEDS ORDERED: LIDOCAINE 2% 100MG/5ML SDV (FOR ANES.) As Ordered ONE (06:47)
[2022-05-24] MEDS ORDERED: ALBUTEROL SULFATE 2.5MG/0.5ML INH NEB SOLN INH STA (06:48)
[2022-05-24] MEDS ORDERED: ONDANSETRON 4MG 2ML VIAL As Ordered ONE (06:48)
[2022-05-24] MEDS ORDERED: LR 1,000 ML IV SCH ×2 (06:50→08:45)
[2022-05-24] MEDS ORDERED: GLYCOPYRROLATE INJ 0.2 MG/ML 2 ML VIAL As Ordered ONE (06:55)
[2022-05-24] MEDS ORDERED: ACETAMINOPHEN 1000MG 100ML IV BAG As Ordered ONE (06:57)
[2022-05-24] MEDS ORDERED: SUGAMMADEX SODIUM 500 MG/5 ML VIAL (BRIDION) As Ordered ONE (08:40)
[2022-05-24] MEDS ORDERED: HYDROMORPHONE HCL 0.5 MG/ 0.5 ML SYRINGE IV PRN (08:45)
[2022-05-24] MEDS ORDERED: oxyCODONE 5MG TAB PO PRN (08:45)
[2022-05-24] MEDS ORDERED: ONDANSETRON 4MG 2ML VIAL IV PRN (08:45)
[2022-05-24] MEDS ORDERED: fentaNYL 100 MCG/2 ML INJECTION IV PRN (08:45)
[2022-05-24] MEDS ORDERED: NS 1,000 ML IV SCH (09:20)
[2022-05-24] MEDS ORDERED: traMADol 50 MG TAB PO PRN (09:20)
[2022-05-24 10:40] VITALS: BP 111/63
== END 2022-05-24 11:24 | disposition home or self-care (01) ==
LOC: M SDC 06:13
PROVIDERS: ATTEND Surgery
DX: K80.20 Calculus of gallbladder without cholecystitis without obstruction (principal); K42.9 Umbilical hernia without obstruction or gangrene

== ENCOUNTER 2022-05-27 11:04 | Inpatient (IN) | payer MEDICARE ==
[~2022-05-27] VITALS: Ht 172.7 cm; Wt 83.5 kg
[~2022-05-27 11:04] MED LIST changes: -ceFAZolin SOD 2 GM in IV 1 EA IV ONE
[2022-05-27] MEDS ORDERED: TORS10TA3 PO (11:18)
[2022-05-27] MEDS ORDERED: POTA1TAB23 PO (11:18)
[2022-05-27] MEDS ORDERED: TADA5TAB PO (11:18)
[2022-05-27] MEDS ORDERED: NS 1,000 ML IV SCH (11:55)
[2022-05-27] MEDS ORDERED: ONDANSETRON 4MG 2ML VIAL IV ONE (11:55)
[2022-05-27] MEDS ORDERED: MORPHINE 2 MG/ML 1ML VIAL IV PRN ×2 (11:55→18:40)
[2022-05-27 13:03] LABS: BASO # 0.1 10^3/uL (0.0-0.2); BASO % 0.4 % (0.0-1.0); EOS # 0.1 10^3/uL (0.0-0.5); EOS % 0.8 % (0.0-3.0); HEMATOCRIT 49.1 % (42.0-52.0); HEMOGLOBIN 16.3 g/dl (13.5-17.5); LYMPH # 1.2 10^3/uL (1.5-5.0); LYMPH % 9.8 % (24.0-44.0); MEAN CORPUSCULAR HEMOGLOBIN 28.4 pg (27.0-33.0); MEAN CORPUSCULAR HGB CONC 33.2 g/dl (32.0-36.5); MEAN CORPUSCULAR VOLUME 85.7 fl (80.0-96.0); MONO # 1.4 10^3/uL (0.0-0.8); MONO % 11.7 % (2.0-8.0); NEUTROPHILS # 9.3 10^3/uL (1.5-8.5); NEUTROPHILS % 76.8 % (36.0-66.0); PLATELET COUNT, AUTOMATED 231 10^3/uL (150-450); RED BLOOD COUNT 5.73 10^6/uL (4.30-6.10); WHITE BLOOD COUNT 12.1 10^3/uL (4.0-10.0)
[2022-05-27 13:24] LABS: LIPASE 24 U/L (12-53)
[2022-05-27 13:40] LABS: ALBUMIN 3.5 G/DL (3.2-5.2); ALKALINE PHOSPHATASE 80 U/L (46-116); ALT/SGPT 28 U/L (7.0-40); AST/SGOT 19 U/L (<34); BILIRUBIN,DIRECT 0.8 MG/DL (<0.4); BILIRUBIN,TOTAL 4.6 MG/DL (0.3-1.2); BLOOD UREA NITROGEN 16 MG/DL (9-23); CALCIUM LEVEL 8.9 MG/DL (8.3-10.6); CARBON DIOXIDE LEVEL 26 MMOL/L (20-31); CHLORIDE LEVEL 104 MMOL/L (98-107); CREATININE FOR GFR 0.98 MG/DL (0.70-1.30); GLOMERULAR FILTRATION RATE > 60.0 (>42); GLUCOSE, FASTING 117 MG/DL (74-106); SODIUM LEVEL 140 MMOL/L (136-145)
[2022-05-27] MEDS ORDERED: ISOVUE-370 76% 100ML VIAL As Ordered ONE (13:48)
[2022-05-27 13:52] LABS: RSV AMPLIFICATION NEGATIVE (NEGATIVE)
[2022-05-27 15:44] LABS: TOTAL PROTEIN 6.9 G/DL (5.7-8.2)
[2022-05-27 17:30] VITALS: BP 133/75
[2022-05-27] MEDS ORDERED: FLUT1BLS2 INH (18:11)
[2022-05-27] MEDS ORDERED: ACET-907 PO (18:11)
[2022-05-27] MEDS ORDERED: FLEXALL (18:11)
[2022-05-27] MEDS ORDERED: MUCI600T31 PO (18:11)
[2022-05-27] MEDS ORDERED: HOME MED LIST COMPLETE! XX SCH (18:15)
[2022-05-27] MEDS ORDERED: ALBUTEROL 90 MCG/ACT 8GM HFA INHALER INH PRN (18:30)
[2022-05-27] MEDS ORDERED: TORSEMIDE 10 MG TABLET PO PRN (18:30)
[2022-05-27] MEDS ORDERED: METOCLOPRAMIDE INJ 10MG/2ML VIAL IV PRN (18:40)
[2022-05-27] MEDS ORDERED: ACETAMINOPHEN TAB 650MG DOSE (2X325MG) PO PRN (18:45)
[2022-05-27] MEDS: guaiFENesin ER 600 MG TAB PO SCH (20:13)
[2022-05-27] MEDS: CEPHALEXIN 500 MG CAP PO SCH (20:14)
[2022-05-27] MEDS: OMEPRAZOLE 20MG CAP PO SCH (20:14)
[2022-05-27] MEDS: FAMOTIDINE 20 MG TAB PO SCH (20:15)
[2022-05-27] MEDS: HEPARIN SOD (PORCINE) 5000UNITS/ML 1ML VIAL/SYRINGE SQ SCH (20:16)
[2022-05-27] MEDS: METOPROLOL SUCC *XL* 25MG TAB (TopROL *XL*) PO SCH (20:16)
[2022-05-27] MEDS: lisinopriL 5 MG TAB PO SCH (20:16)
[2022-05-27] MEDS: NS 1,000 ML IV SCH (21:27)
[2022-05-27] MEDS: ADVAIR HFA 115/21MCG INHALER INH SCH (21:59)
[2022-05-28] MEDS: CEPHALEXIN 500 MG CAP PO SCH ×5 (00:43→23:31)
[2022-05-28 05:08] VITALS: BP 129/65
[2022-05-28] MEDS: LEVOTHYROXINE 50MCG TABLET (0.05MG) PO SCH (05:58)
[2022-05-28] MEDS: HEPARIN SOD (PORCINE) 5000UNITS/ML 1ML VIAL/SYRINGE SQ SCH ×3 (05:58→21:56)
[2022-05-28] MEDS: NS 1,000 ML IV SCH ×2 (05:59→15:40)
[2022-05-28 06:17] LABS: HEMATOCRIT 41.3 % (42.0-52.0); MEAN CORPUSCULAR HGB CONC 33.7 g/dl (32.0-36.5); MEAN CORPUSCULAR VOLUME 86.2 fl (80.0-96.0); PLATELET COUNT, AUTOMATED 205 10^3/uL (150-450); RED BLOOD COUNT 4.79 10^6/uL (4.30-6.10); WHITE BLOOD COUNT 8.6 10^3/uL (4.0-10.0)
[2022-05-28 06:24] LABS: HEMOGLOBIN 13.9 g/dl (13.5-17.5)
[2022-05-28 06:38] LABS: ALBUMIN 2.8 G/DL (3.2-5.2); ALKALINE PHOSPHATASE 67 U/L (46-116); ALT/SGPT 20 U/L (7.0-40); AST/SGOT 14 U/L (<34); BILIRUBIN,TOTAL 3.2 MG/DL (0.3-1.2); BLOOD UREA NITROGEN 17 MG/DL (9-23); CALCIUM LEVEL 8.4 MG/DL (8.3-10.6); CARBON DIOXIDE LEVEL 24 MMOL/L (20-31); CHLORIDE LEVEL 106 MMOL/L (98-107); CREATININE FOR GFR 1.04 MG/DL (0.70-1.30); GLOMERULAR FILTRATION RATE > 60.0 (>42); GLUCOSE, FASTING 79 MG/DL (74-106); SODIUM LEVEL 141 MMOL/L (136-145); TOTAL PROTEIN 5.6 G/DL (5.7-8.2)
[2022-05-28] MEDS: ADVAIR HFA 115/21MCG INHALER INH SCH ×2 (07:37→19:21)
[2022-05-28] MEDS ORDERED: BISACODYL 10MG SUPP PR ONE (08:55)
[2022-05-28] MEDS ORDERED: TADALAFIL 5 MG PO SCH (09:00)
[2022-05-28] MEDS: ASPIRIN 325 MG TAB PO SCH (09:44)
[2022-05-28] MEDS: MONTELUKAST 10 MG TAB PO SCH (09:45)
[2022-05-28] MEDS: METOPROLOL SUCC *XL* 25MG TAB (TopROL *XL*) PO SCH (09:48)
[2022-05-28] MEDS: guaiFENesin ER 600 MG TAB PO SCH ×2 (09:49→21:56)
[2022-05-28] MEDS: SENNA 8.6 MG TAB (SENOKOT) PO SCH ×2 (09:49→21:56)
[2022-05-28] MEDS: OMEPRAZOLE 20MG CAP PO SCH (09:49)
[2022-05-28] MEDS: FAMOTIDINE 20 MG TAB PO SCH (09:50)
[2022-05-28] MEDS: DOCUSATE SODIUM 100MG CAPSULE PO SCH ×2 (09:50→21:55)
[2022-05-28] MEDS: lisinopriL 5 MG TAB PO SCH (09:51)
[2022-05-28] MEDS: PRAVASTATIN 10 MG TAB PO SCH (10:04)
[2022-05-28 14:00] VITALS: BP 129/66
[2022-05-28] MEDS: TADALAFIL 5 MG PO SCH (14:44)
[2022-05-28] MEDS: ALBUTEROL SULFATE 2.5MG/0.5ML INH NEB SOLN NEB PRN (15:40)
[2022-05-28] MEDS ORDERED: NS 500 ML IV ONE (20:00)
[2022-05-28 21:09] VITALS: BP 132/66
[2022-05-28] MEDS: NYSTATIN 500,000U/5ML SUSP UDC SS SCH (21:57)
[2022-05-29] MEDS: NS 1,000 ML IV SCH ×3 (00:30→21:24)
[2022-05-29] MEDS: CEPHALEXIN 500 MG CAP PO SCH ×4 (05:48→23:48)
[2022-05-29] MEDS: HEPARIN SOD (PORCINE) 5000UNITS/ML 1ML VIAL/SYRINGE SQ SCH ×3 (05:51→22:22)
[2022-05-29] MEDS ORDERED: LEVOTHYROXINE 25MCG TABLET (0.025MG) PO SCH (06:00)
[2022-05-29 06:10] VITALS: BP 129/79
[2022-05-29 06:29] LABS: HEMATOCRIT 38.6 % (42.0-52.0); HEMOGLOBIN 12.9 g/dl (13.5-17.5); MEAN CORPUSCULAR HEMOGLOBIN 28.5 pg (27.0-33.0); MEAN CORPUSCULAR HGB CONC 33.4 g/dl (32.0-36.5); MEAN CORPUSCULAR VOLUME 85.2 fl (80.0-96.0); PLATELET COUNT, AUTOMATED 188 10^3/uL (150-450); RED BLOOD COUNT 4.53 10^6/uL (4.30-6.10); WHITE BLOOD COUNT 6.3 10^3/uL (4.0-10.0)
[2022-05-29 07:01] LABS: ALBUMIN 2.5 G/DL (3.2-5.2); ALKALINE PHOSPHATASE 60 U/L (46-116); ALT/SGPT 17 U/L (7.0-40); AST/SGOT 15 U/L (<34); BLOOD UREA NITROGEN 17 MG/DL (9-23); CARBON DIOXIDE LEVEL 22 MMOL/L (20-31); CHLORIDE LEVEL 107 MMOL/L (98-107); CREATININE FOR GFR 0.88 MG/DL (0.70-1.30); GLOMERULAR FILTRATION RATE > 60.0 (>42); GLUCOSE, FASTING 72 MG/DL (74-106); POTASSIUM SERUM 3.9 MMOL/L (3.5-5.1); SODIUM LEVEL 140 MMOL/L (136-145); TOTAL PROTEIN 5.1 G/DL (5.7-8.2)
[2022-05-29] MEDS: ALBUTEROL SULFATE 2.5MG/0.5ML INH NEB SOLN NEB PRN ×3 (07:42→19:10)
[2022-05-29] MEDS: ADVAIR HFA 115/21MCG INHALER INH SCH ×2 (07:42→19:09)
[2022-05-29] MEDS: SIMETHICONE 80MG CHEW TAB PO SCH ×4 (08:32→22:21)
[2022-05-29] MEDS: guaiFENesin ER 600 MG TAB PO SCH ×2 (08:32→22:21)
[2022-05-29] MEDS: DOCUSATE SODIUM 100MG CAPSULE PO SCH ×2 (08:32→22:21)
[2022-05-29] MEDS: FAMOTIDINE 20 MG TAB PO SCH (08:33)
[2022-05-29] MEDS: SENNA 8.6 MG TAB (SENOKOT) PO SCH ×2 (08:33→22:21)
[2022-05-29] MEDS: ASPIRIN 325 MG TAB PO SCH (08:33)
[2022-05-29] MEDS: MONTELUKAST 10 MG TAB PO SCH (08:33)
[2022-05-29] MEDS: METOPROLOL SUCC *XL* 25MG TAB (TopROL *XL*) PO SCH (08:33)
[2022-05-29] MEDS: lisinopriL 5 MG TAB PO SCH (08:33)
[2022-05-29] MEDS: OMEPRAZOLE 20MG CAP PO SCH (08:33)
[2022-05-29] MEDS: NYSTATIN 500,000U/5ML SUSP UDC SS SCH ×4 (08:34→22:22)
[2022-05-29] MEDS: PRAVASTATIN 10 MG TAB PO SCH (08:39)
[2022-05-29] MEDS: TADALAFIL 5 MG PO SCH (08:39)
[2022-05-29 14:00] VITALS: BP 136/73
[2022-05-29 22:00] VITALS: BP 134/70
[2022-05-30 05:42] VITALS: BP 133/69
[2022-05-30] MEDS: LEVOTHYROXINE 50MCG TABLET (0.05MG) PO SCH (05:49)
[2022-05-30] MEDS: CEPHALEXIN 500 MG CAP PO SCH ×4 (05:49→23:33)
[2022-05-30] MEDS: NS 1,000 ML IV SCH (05:51)
[2022-05-30] MEDS: HEPARIN SOD (PORCINE) 5000UNITS/ML 1ML VIAL/SYRINGE SQ SCH ×3 (05:51→22:00)
[2022-05-30 06:47] LABS: HEMATOCRIT 37.3 % (42.0-52.0); HEMOGLOBIN 12.9 g/dl (13.5-17.5); MEAN CORPUSCULAR HGB CONC 34.6 g/dl (32.0-36.5); MEAN CORPUSCULAR VOLUME 83.8 fl (80.0-96.0); PLATELET COUNT, AUTOMATED 178 10^3/uL (150-450); RED BLOOD COUNT 4.45 10^6/uL (4.30-6.10); WHITE BLOOD COUNT 6.3 10^3/uL (4.0-10.0)
[2022-05-30] MEDS: ALBUTEROL SULFATE 2.5MG/0.5ML INH NEB SOLN NEB PRN ×2 (07:24→18:57)
[2022-05-30] MEDS: ADVAIR HFA 115/21MCG INHALER INH SCH ×2 (07:24→18:57)
[2022-05-30 07:53] LABS: ALBUMIN 2.5 G/DL (3.2-5.2); ALKALINE PHOSPHATASE 65 U/L (46-116); ALT/SGPT 16 U/L (7.0-40); AST/SGOT 19 U/L (<34); BILIRUBIN,TOTAL 1.8 MG/DL (0.3-1.2); BLOOD UREA NITROGEN 13 MG/DL (9-23); CARBON DIOXIDE LEVEL 22 MMOL/L (20-31); CHLORIDE LEVEL 109 MMOL/L (98-107); CREATININE FOR GFR 0.92 MG/DL (0.70-1.30); GLOMERULAR FILTRATION RATE > 60.0 (>42); GLUCOSE, FASTING 79 MG/DL (74-106); POTASSIUM SERUM 3.6 MMOL/L (3.5-5.1); SODIUM LEVEL 139 MMOL/L (136-145); TOTAL PROTEIN 5.1 G/DL (5.7-8.2)
[2022-05-30] MEDS: TADALAFIL 5 MG PO SCH (08:25)
[2022-05-30] MEDS: MONTELUKAST 10 MG TAB PO SCH (08:25)
[2022-05-30] MEDS: PRAVASTATIN 10 MG TAB PO SCH (08:25)
[2022-05-30] MEDS: ASPIRIN 325 MG TAB PO SCH (08:25)
[2022-05-30] MEDS: DOCUSATE SODIUM 100MG CAPSULE PO SCH ×2 (08:25→21:19)
[2022-05-30] MEDS: SENNA 8.6 MG TAB (SENOKOT) PO SCH ×2 (08:26→21:19)
[2022-05-30] MEDS: SIMETHICONE 80MG CHEW TAB PO SCH ×4 (08:26→21:19)
[2022-05-30] MEDS: lisinopriL 5 MG TAB PO SCH (08:27)
[2022-05-30] MEDS: METOPROLOL SUCC *XL* 25MG TAB (TopROL *XL*) PO SCH (08:27)
[2022-05-30] MEDS: FAMOTIDINE 20 MG TAB PO SCH (08:27)
[2022-05-30] MEDS: NYSTATIN 500,000U/5ML SUSP UDC SS SCH ×4 (08:27→21:19)
[2022-05-30] MEDS: guaiFENesin ER 600 MG TAB PO SCH ×2 (08:27→21:19)
[2022-05-30] MEDS: OMEPRAZOLE 20MG CAP PO SCH (08:28)
[2022-05-30 14:00] VITALS: BP 139/72
[2022-05-30 20:37] VITALS: BP 150/73
[2022-05-31 05:36] VITALS: BP 152/77
[2022-05-31] MEDS: HEPARIN SOD (PORCINE) 5000UNITS/ML 1ML VIAL/SYRINGE SQ SCH (06:00)
[2022-05-31] MEDS: LEVOTHYROXINE 50MCG TABLET (0.05MG) PO SCH (06:22)
[2022-05-31] MEDS: CEPHALEXIN 500 MG CAP PO SCH (06:22)
[2022-05-31 07:23] LABS: HEMATOCRIT 40.9 % (42.0-52.0); HEMOGLOBIN 13.6 g/dl (13.5-17.5); MEAN CORPUSCULAR HEMOGLOBIN 28.3 pg (27.0-33.0); MEAN CORPUSCULAR HGB CONC 33.3 g/dl (32.0-36.5); PLATELET COUNT, AUTOMATED 214 10^3/uL (150-450); RED BLOOD COUNT 4.81 10^6/uL (4.30-6.10); WHITE BLOOD COUNT 6.5 10^3/uL (4.0-10.0)
[2022-05-31] MEDS: ALBUTEROL SULFATE 2.5MG/0.5ML INH NEB SOLN NEB PRN (07:44)
[2022-05-31] MEDS: ADVAIR HFA 115/21MCG INHALER INH SCH (07:44)
[2022-05-31 07:56] LABS: ALBUMIN 2.9 G/DL (3.2-5.2); ALKALINE PHOSPHATASE 70 U/L (46-116); ALT/SGPT 23 U/L (7.0-40); AST/SGOT 23 U/L (<34); BILIRUBIN,TOTAL 1.3 MG/DL (0.3-1.2); BLOOD UREA NITROGEN 9 MG/DL (9-23); CALCIUM LEVEL 8.4 MG/DL (8.3-10.6); CARBON DIOXIDE LEVEL 25 MMOL/L (20-31); CHLORIDE LEVEL 108 MMOL/L (98-107); CREATININE FOR GFR 0.91 MG/DL (0.70-1.30); GLOMERULAR FILTRATION RATE > 60.0 (>42); GLUCOSE, FASTING 92 MG/DL (74-106); POTASSIUM SERUM 3.4 MMOL/L (3.5-5.1); SODIUM LEVEL 141 MMOL/L (136-145); TOTAL PROTEIN 5.7 G/DL (5.7-8.2)
[2022-05-31 09:01] VITALS: BP 161/83
[2022-05-31] MEDS: NYSTATIN 500,000U/5ML SUSP UDC SS SCH (09:02)
[2022-05-31] MEDS: guaiFENesin ER 600 MG TAB PO SCH (09:03)
[2022-05-31] MEDS: MONTELUKAST 10 MG TAB PO SCH (09:03)
[2022-05-31] MEDS: DOCUSATE SODIUM 100MG CAPSULE PO SCH (09:03)
[2022-05-31] MEDS: SIMETHICONE 80MG CHEW TAB PO SCH (09:03)
[2022-05-31] MEDS: SENNA 8.6 MG TAB (SENOKOT) PO SCH (09:03)
[2022-05-31] MEDS: OMEPRAZOLE 20MG CAP PO SCH (09:03)
[2022-05-31 09:04] VITALS: BP 161/83
[2022-05-31] MEDS: METOPROLOL SUCC *XL* 25MG TAB (TopROL *XL*) PO SCH (09:04)
[2022-05-31] MEDS: ASPIRIN 325 MG TAB PO SCH (09:04)
[2022-05-31] MEDS: lisinopriL 5 MG TAB PO SCH (09:04)
[2022-05-31] MEDS: PRAVASTATIN 10 MG TAB PO SCH (09:04)
[2022-05-31] MEDS: FAMOTIDINE 20 MG TAB PO SCH (09:04)
[2022-05-31] MEDS: TADALAFIL 5 MG PO SCH (09:05)
[2022-05-31] MEDS ORDERED: POTASSIUM CHLORIDE 10MEQ SR TABLET PO ONE (09:35)
[2022-05-31 10:05] LABS: URIC ACID 7.5 MG/DL (3.7-9.2)
[2022-05-31] MEDS ORDERED: AMOX875T2 PO (11:03)
[2022-05-31] MEDS ORDERED: PRED20TA PO (11:03)
[2022-06-02] MEDS ORDERED: LEVOTHYROXINE 50MCG TABLET (0.05MG) PO SCH (06:00)
== END 2022-05-31 12:42 | disposition home or self-care (01) | DRG 394 ==
LOC: M ED 11:04 → M MSPAV 16:04 → ENRESERV 16:07
PROVIDERS: ADMIT Internal Medicine; ATTEND Internal Medicine
DX: K91.89 Other postprocedural complications and disorders of digestive system (principal); L03.311 Cellulitis of abdominal wall; K56.7 Ileus, unspecified; R18.8 Other ascites; E80.6 Other disorders of bilirubin metabolism; I10 Essential (primary) hypertension; J44.9 Chronic obstructive pulmonary disease, unspecified; E11.9 Type 2 diabetes mellitus without complications; E03.9 Hypothyroidism, unspecified; I48.91 Unspecified atrial fibrillation; J45.909 Unspecified asthma, uncomplicated; Z90.49 Acquired absence of other specified parts of digestive tract; Z86.711 Personal history of pulmonary embolism; Z87.891 Personal history of nicotine dependence; E78.5 Hyperlipidemia, unspecified; K21.9 Gastro-esophageal reflux disease without esophagitis; N40.1 Benign prostatic hyperplasia with lower urinary tract symptoms; Z79.82 Long term (current) use of aspirin; Z79.890 Hormone replacement therapy; Z79.899 Other long term (current) drug therapy; Z88.8 Allergy status to other drugs, medicaments and biological substances; Z20.822 Contact with and (suspected) exposure to COVID-19

== ENCOUNTER → 2022-08-01 | Outpatient (REF) | payer MEDICARE ==
[~2022-08-01] MED LIST changes: +ACET-907 PO; +AMOX875T2 PO; +FLUT1BLS2 INH; +MUCI600T31 PO; +POTA1TAB23 PO; +TADA5TAB PO; +TORS10TA3 PO
== END ==
LOC: M LAB REF 17:49
PROVIDERS: ATTEND Internal Medicine Pulmonary Disease
DX: J47.9 Bronchiectasis, uncomplicated (principal)

== ENCOUNTER → 2022-09-10 | Outpatient (REF) | payer MEDICARE | LOC: M LAB REF 11:44 | PROVIDERS: ATTEND Internal Medicine Pulmonary Disease | DX: J47.9 Bronchiectasis, uncomplicated (principal) ==

== ENCOUNTER → 2022-10-24 | Outpatient (CLI) | payer MEDICARE ==
[2022-10-24 13:56] LABS: THYROID STIMULATING HORMONE 1.516 uIU/ML (0.55-4.78)
[2022-10-24 14:04] LABS: CHOLESTEROL RISK RATIO 4.25 (<5); HDL CHOLESTEROL 36.2 MG/DL (>40); LDL CHOLESTEROL 92.2 MG/DL (<100); NON-HDL-C 117.8 MG/DL
[2022-10-24 14:12] LABS: HEMOGLOBIN A1c 5.5 % (4.0-6.0)
== END ==
LOC: M WUC 09:13
PROVIDERS: ATTEND Physician Assistant
DX: E78.5 Hyperlipidemia, unspecified (principal); E11.9 Type 2 diabetes mellitus without complications; E03.9 Hypothyroidism, unspecified

== ENCOUNTER → 2023-07-10 | Outpatient (REF) | payer MEDICARE | LOC: M LAB REF 12:20 | PROVIDERS: ATTEND Physician Assistant | DX: M54.2 Cervicalgia (principal); M47.892 Other spondylosis, cervical region ==

== ENCOUNTER 2023-09-05 14:13 | Emergency (ER) | payer MEDICARE ==
[~2023-09-05] VITALS: Ht 172.7 cm; Wt 75.6 kg
[2023-09-05] MEDS: KETOROLAC 30 MG/ML 1ML VIAL IV ONE (17:40)
[2023-09-05 18:08] LABS: BASO # 0.1 10^3/uL (0.0-0.2); BASO % 0.7 % (0.0-1.0); EOS # 0.1 10^3/uL (0.0-0.5); EOS % 0.7 % (0.0-3.0); HEMATOCRIT 43.3 % (42.0-52.0); HEMOGLOBIN 15.1 g/dl (13.5-17.5); LYMPH # 1.5 10^3/uL (1.5-5.0); LYMPH % 17.3 % (24.0-44.0); MEAN CORPUSCULAR HEMOGLOBIN 28.4 pg (27.0-33.0); MEAN CORPUSCULAR HGB CONC 34.9 g/dl (32.0-36.5); MEAN CORPUSCULAR VOLUME 81.4 fl (80.0-96.0); MONO % 11.8 % (2.0-8.0); NEUTROPHILS # 6.1 10^3/uL (1.5-8.5); NEUTROPHILS % 69.2 % (36.0-66.0); PLATELET COUNT, AUTOMATED 264 10^3/uL (150-450); RED BLOOD COUNT 5.32 10^6/uL (4.30-6.10); WHITE BLOOD COUNT 8.8 10^3/uL (4.0-10.0)
[2023-09-05 18:37] LABS: ALBUMIN 3.3 G/DL (3.2-5.2); ALKALINE PHOSPHATASE 76 U/L (46-116); ALT/SGPT 13 U/L (7.0-40); AST/SGOT 27 U/L (<34); BILIRUBIN,TOTAL 2.4 MG/DL (0.3-1.2); BLOOD UREA NITROGEN 14 MG/DL (9-23); CALCIUM LEVEL 9.3 MG/DL (8.3-10.6); CARBON DIOXIDE LEVEL 24 MMOL/L (20-31); CHLORIDE LEVEL 98 MMOL/L (98-107); CREATININE FOR GFR 0.87 MG/DL (0.70-1.30); GLOMERULAR FILTRATION RATE > 60.0 (>35); GLUCOSE, FASTING 103 MG/DL (74-106); POTASSIUM SERUM 4.3 MMOL/L (3.5-5.1); SODIUM LEVEL 129 MMOL/L (136-145)
[2023-09-05] MEDS ORDERED: ISOVUE-370 76% 100ML VIAL As Ordered ONE (18:58)
[2023-09-05] MEDS: NS 1,000 ML IV ONE (20:50)
[2023-09-05] MEDS: DEXTROMETHORPHAN 60MG/10ML SUSP 90ML BTL(DELSYM) PO PRN (22:40)
[2023-09-06 00:30] VITALS: BP 169/87
[2023-09-06] MEDS: METOPROLOL SUCC *XL* 25MG TAB (TopROL *XL*) PO ONE (00:30)
[2023-09-06] MEDS: NORCO, ANEXSIA 5/325MG TABLET (HYDROcodone/ACETAMINOPHEN) PO ONE (00:31)
[2023-09-06 00:42] VITALS: BP 165/85; TEMP 98.9; O2SAT 99
== END 2023-09-06 00:48 | disposition short-term general hospital (02) ==
LOC: M ED 14:13 → CANBEDREQ 23:03 → M ED 09-06 00:48
DX: G83.4 Cauda equina syndrome (principal); X58.XXXA Exposure to other specified factors, initial encounter; Y92.009 Unspecified place in unspecified non-institutional (private) residence as the place of occurrence of the external cause; Y93.9 Activity, unspecified; Y99.9 Unspecified external cause status; M99.63 Osseous and subluxation stenosis of intervertebral foramina of lumbar region; K57.30 Diverticulosis of large intestine without perforation or abscess without bleeding; G95.29 Other cord compression; R16.0 Hepatomegaly, not elsewhere classified; M47.816 Spondylosis without myelopathy or radiculopathy, lumbar region; E11.9 Type 2 diabetes mellitus without complications; I48.91 Unspecified atrial fibrillation; I10 Essential (primary) hypertension; K21.9 Gastro-esophageal reflux disease without esophagitis; Z87.442 Personal history of urinary calculi; J45.909 Unspecified asthma, uncomplicated; F41.9 Anxiety disorder, unspecified; K76.0 Fatty (change of) liver, not elsewhere classified; N40.0 Benign prostatic hyperplasia without lower urinary tract symptoms; G47.33 Obstructive sleep apnea (adult) (pediatric); Z87.891 Personal history of nicotine dependence; Z79.82 Long term (current) use of aspirin; Z79.84 Long term (current) use of oral hypoglycemic drugs; Z79.899 Other long term (current) drug therapy; Z88.1 Allergy status to other antibiotic agents
CPT/HCPCS: 72131; 72148; 72220; 73560; 74021; 74177; 80053; 81001; 85025; 96361; 96374; 99284; J1885; Q9967

== ENCOUNTER → 2024-02-16 | Outpatient (CLI) | payer MEDICARE, OTHER ==
[~2024-02-16] MED LIST changes: +ALFU10TA23 PO; +AMIT8CAP4 PO; +CALC500T60 PO; +ENEMENE8 PR; +GABA-284 PO; +LEVO1TAB39 PO; +LIDO5TD TOP; +MELA5CAP2 PO; +ONDA-84 PO; +PANT40TA29 PO; +PRED10TA2 PO; +PREG50CA PO; +PROC10TA5 PO; +SAW1CAP3 PO; +SENN-186 PO; +TRAZ-252 PO
== END ==
LOC: M PLARAD 10:01
PROVIDERS: ATTEND Internal Medicine Medical Oncology
DX: C83.30 Diffuse large B-cell lymphoma, unspecified site (principal); R91.8 Other nonspecific abnormal finding of lung field
CPT/HCPCS: 78815; A9552

== ENCOUNTER 2024-03-24 14:30 | Observation (INO) | payer OTHER, MEDICARE ==
[~2024-03-24] VITALS: Ht 170.2 cm; Wt 96.0 kg
[~2024-03-24 14:30] MED LIST changes: -ADV500INH INH; +ADVA1AER10 INH; -TADA5TAB PO; +TADA5TAB94 PO
[2024-03-24 15:22] LABS: BASO % 0.6 % (0.0-1.0); EOS % 0.8 % (0.0-3.0); HEMATOCRIT 36.7 % (42.0-52.0); HEMOGLOBIN 11.5 g/dl (13.5-17.5); LYMPH # 0.2 10^3/uL (1.5-5.0); LYMPH % 3.5 % (24.0-44.0); MEAN CORPUSCULAR HEMOGLOBIN 25.1 pg (27.0-33.0); MEAN CORPUSCULAR HGB CONC 31.3 g/dl (32.0-36.5); MONO # 0.3 10^3/uL (0.0-0.8); NEUTROPHILS # 4.7 10^3/uL (1.5-8.5); NEUTROPHILS % 89.1 % (36.0-66.0); PLATELET COUNT, AUTOMATED 167 10^3/uL (150-450); RED BLOOD COUNT 4.59 10^6/uL (4.30-6.10); WHITE BLOOD COUNT 5.2 10^3/uL (4.0-10.0)
[2024-03-24] MEDS: METOPROLOL 5 MG/5 ML VIAL IV SCH (15:45)
[2024-03-24 15:47] LABS: ALBUMIN 2.7 G/DL (3.2-5.2); ALKALINE PHOSPHATASE 61 U/L (40-129); ALT/SGPT 19 U/L (7.0-40); AST/SGOT 11 U/L (<34); BILIRUBIN,DIRECT 0.4 MG/DL (<0.4); BILIRUBIN,TOTAL 1.1 MG/DL (0.3-1.2); BLOOD UREA NITROGEN 21 MG/DL (9-23); CALCIUM LEVEL 8.1 MG/DL (8.3-10.6); CARBON DIOXIDE LEVEL 26 MMOL/L (20-31); CHLORIDE LEVEL 106 MMOL/L (98-107); CPK CREATINE PHOSPHOKINASE 39 U/L (46-171); CREATININE FOR GFR 0.88 MG/DL (0.70-1.30); GLOMERULAR FILTRATION RATE > 60.0 (>35); GLUCOSE, FASTING 143 MG/DL (74-106); MB/CK RELATIVE INDEX 2.56 (< OR =4); POTASSIUM SERUM 3.7 MMOL/L (3.5-5.1); SODIUM LEVEL 140 MMOL/L (136-145); TOTAL PROTEIN 5.6 G/DL (5.7-8.2)
[2024-03-24 15:48] LABS: THYROID STIMULATING HORMONE 1.216 uIU/ML (0.55-4.78)
[2024-03-24] MEDS ORDERED: ISOVUE-370 76% 100ML VIAL As Ordered ONE (15:54)
[2024-03-24] MEDS: NS 500 ML IV ONE (16:13)
[2024-03-24 16:55] LABS: CK-MB VALUE MASS 1.4 NG/ML (<3.6)
[2024-03-24 16:57] LABS: MB/CK RELATIVE INDEX 5.38 (< OR =4)
[2024-03-24] MEDS ORDERED: **NOTE PATIENT COMMENT** MISC XX SCH (17:55)
[2024-03-24] MEDS ORDERED: OMEP40CA5 PO (18:51)
[2024-03-24] MEDS ORDERED: DICL100G10 TOP (18:51)
[2024-03-24] MEDS ORDERED: METO1TAB87 PO (18:51)
[2024-03-24] MEDS ORDERED: LIDO5CRE6 TOP (18:51)
[2024-03-24] MEDS ORDERED: MICO2CRE45 TOP (18:51)
[2024-03-24] MEDS ORDERED: PROBCAP2 PO (18:51)
[2024-03-24] MEDS ORDERED: MIRA3350 PO (18:52)
[2024-03-24] MEDS ORDERED: HOME MED LIST COMPLETE! XX SCH (19:00)
[2024-03-24] MEDS: NS (Normal Saline) 0.9% 1,000 ML IV SCH (19:03)
[2024-03-24] MEDS ORDERED: ALBUTEROL 90 MCG/ACT 8GM HFA INHALER INH PRN (19:20)
[2024-03-24] MEDS ORDERED: LIDOCAINE 5% (LIDODERM) PATCH TOP PRN (19:20)
[2024-03-24] MEDS ORDERED: RAMELTEON 8 MG TAB (ROZEREM) PO PRN (19:20)
[2024-03-24] MEDS ORDERED: MICONAZOLE TOPICAL 2% CREAM 15GM TOP PRN (19:20)
[2024-03-24] MEDS ORDERED: FLUTICASONE PROP 0.05% NASAL SPRAY 16 GM (FLONASE) NARES PRN (19:20)
[2024-03-24] MEDS ORDERED: ACETAMINOPHEN 325 MG TAB PO PRN (19:20)
[2024-03-24] MEDS ORDERED: PROCHLORPERAZINE 5MG TAB PO PRN (19:20)
[2024-03-24] MEDS ORDERED: guaiFENesin ER TABLET 600 MG TAB PO PRN (19:20)
[2024-03-24] MEDS ORDERED: CALCIUM CARBONATE 500 MG CHEW U/D PO PRN (19:20)
[2024-03-24] MEDS ORDERED: DICLOFENAC EPOLAMINE 1.3% PATCH TOP PRN (19:20)
[2024-03-24] MEDS ORDERED: BISACODYL 10MG SUPP PR PRN (19:40)
[2024-03-24] MEDS ORDERED: AMITIZA 8 MCG PO SCH (21:00)
[2024-03-24] MEDS ORDERED: ALFUZOSIN 10 MG PO SCH (21:00)
[2024-03-24] MEDS: MONTELUKAST 10 MG TAB PO SCH (21:08)
[2024-03-24] MEDS: SENNA 8.6 MG TAB (SENOKOT) PO SCH (21:09)
[2024-03-24] MEDS: SENOKOT S TAB PO SCH (21:09)
[2024-03-24] MEDS: LIDOCAINE 5% OINT 30GM TUBE TOP SCH (21:09)
[2024-03-24] MEDS: METOPROLOL TART 12.5 MG PER 1/2 TAB PO SCH (21:09)
[2024-03-24] MEDS: traZODone 50 MG TAB PO SCH (21:09)
[2024-03-24] MEDS: PREGABALIN 50 MG CAP (LYRICA) PO SCH (21:10)
[2024-03-24] MEDS: MIRALAX *UNIT DOSE* 17GM PACKET PO SCH (21:10)
[2024-03-24] MEDS: PRAVASTATIN 10 MG TAB PO SCH (21:11)
[2024-03-25 00:20] LABS: KETONE, URINE AUTO RFX NEGATIVE (NEGATIVE); LEUKOCYTE ESTERASE UR AUTO RFX 3+ (NEGATIVE); MUCUS, URINE RFX SMALL (NEGATIVE); NITRITE, URINE AUTO RFX POSITIVE (NEGATIVE); RBC, URINE AUTO RFX 51 /HPF (0-3); SQUAM EPITHELIAL CELL UR AURFX 1 /HPF (0-6); WBC, URINE AUTO RFX TNTC /HPF (0-3)
[2024-03-25 00:48] LABS: CK-MB VALUE MASS < 1.0 NG/ML (<3.6); CPK CREATINE PHOSPHOKINASE 53 U/L (46-171); MB/CK RELATIVE INDEX 1.88 (< OR =4)
[2024-03-25] MEDS: LEVOTHYROXINE 50MCG TABLET (0.05MG) PO SCH (06:30)
[2024-03-25] MEDS: CEFEPIME HCL 1 GM in DEXTROSE 5% (D5W) ADV/MINI-BAG 50 ML IV SCH (08:10)
[2024-03-25 08:12] LABS: HEMATOCRIT 26.8 % (42.0-52.0); MEAN CORPUSCULAR HEMOGLOBIN 24.9 pg (27.0-33.0); MEAN CORPUSCULAR HGB CONC 31.7 g/dl (32.0-36.5); MEAN CORPUSCULAR VOLUME 78.6 fl (80.0-96.0); PLATELET COUNT, AUTOMATED 109 10^3/uL (150-450); RED BLOOD COUNT 3.41 10^6/uL (4.30-6.10)
[2024-03-25] MEDS: LACTOBACILLUS ACIDOPHILUS CAP (BACID) PO SCH (08:13)
[2024-03-25] MEDS: OMEPRAZOLE 20MG CAP PO SCH (08:13)
[2024-03-25] MEDS: ENOXAPARIN 40MG/0.4ML SYRINGE (J1650 PER 10MG) SC SCH (08:14)
[2024-03-25] MEDS: ASPIRIN 81MG ENTERIC TABLET PO SCH (08:14)
[2024-03-25 08:20] LABS: HEMOGLOBIN 8.5 g/dl (13.5-17.5)
[2024-03-25 08:38] LABS: CK-MB VALUE MASS < 1.0 NG/ML (<3.6)
[2024-03-25 08:40] LABS: CPK CREATINE PHOSPHOKINASE 43 U/L (46-171); MB/CK RELATIVE INDEX 2.32 (< OR =4)
[2024-03-25 08:53] LABS: BLOOD UREA NITROGEN 17 MG/DL (9-23); CALCIUM LEVEL 7.8 MG/DL (8.3-10.6); CARBON DIOXIDE LEVEL 27 MMOL/L (20-31); CHLORIDE LEVEL 107 MMOL/L (98-107); CREATININE FOR GFR 0.91 MG/DL (0.70-1.30); GLOMERULAR FILTRATION RATE > 60.0 (>35); GLUCOSE, FASTING 81 MG/DL (74-106); MAGNESIUM LEVEL 1.8 MG/DL (1.8-2.4); SODIUM LEVEL 141 MMOL/L (136-145)
[2024-03-25] MEDS ORDERED: LevoFLOXacin 500 MG TABLET PO SCH (09:00)
[2024-03-25] MEDS ORDERED: predniSONE 10MG TAB PO SCH (09:00)
[2024-03-25 15:00] VITALS: BP 113/61; TEMP 98.1; O2SAT 97
[2024-03-25 16:44] LABS: CK-MB VALUE MASS < 1.0 NG/ML (<3.6)
[2024-03-25 16:48] LABS: CPK CREATINE PHOSPHOKINASE 39 U/L (46-171); MB/CK RELATIVE INDEX 2.56 (< OR =4)
[2024-03-25 20:00] VITALS: BP 128/62; TEMP 97.7; O2SAT 97
[2024-03-25] MEDS: CEFEPIME HCL 2 GM in DEXTROSE 5% (D5W) ADV/MINI-BAG 50 ML IV SCH (20:23)
[2024-03-26 04:00] VITALS: BP 163/68; TEMP 97.9; O2SAT 96
[2024-03-26 06:32] LABS: HEMATOCRIT 27.7 % (42.0-52.0); HEMOGLOBIN 8.6 g/dl (13.5-17.5); MEAN CORPUSCULAR HEMOGLOBIN 24.9 pg (27.0-33.0); MEAN CORPUSCULAR VOLUME 80.1 fl (80.0-96.0); RED BLOOD COUNT 3.46 10^6/uL (4.30-6.10); WHITE BLOOD COUNT 2.4 10^3/uL (4.0-10.0)
[2024-03-26 06:44] LABS: BLOOD UREA NITROGEN 13 MG/DL (9-23); CALCIUM LEVEL 7.6 MG/DL (8.3-10.6); CARBON DIOXIDE LEVEL 25 MMOL/L (20-31); CHLORIDE LEVEL 112 MMOL/L (98-107); GLOMERULAR FILTRATION RATE > 60.0 (>35); GLUCOSE, FASTING 82 MG/DL (74-106); MAGNESIUM LEVEL 1.9 MG/DL (1.8-2.4); SODIUM LEVEL 144 MMOL/L (136-145)
[2024-03-26 08:31] VITALS: BP 142/53
[2024-03-26 08:34] LABS: PLATELET COUNT, AUTOMATED 97 10^3/uL (150-450)
[2024-03-26 12:00] VITALS: BP 135/61; TEMP 97.7
== END 2024-03-26 12:53 | disposition home or self-care (01) ==
LOC: M ED 14:30 → M ED INP 14:31 → M MS5PR 03-25 15:05
PROVIDERS: ADMIT Family Medicine; ATTEND Family Medicine
DX: R55 Syncope and collapse (principal); N39.0 Urinary tract infection, site not specified; J44.9 Chronic obstructive pulmonary disease, unspecified; E78.5 Hyperlipidemia, unspecified; I10 Essential (primary) hypertension; N31.9 Neuromuscular dysfunction of bladder, unspecified; K21.9 Gastro-esophageal reflux disease without esophagitis; Z79.899 Other long term (current) drug therapy
CPT/HCPCS: 36415; 51702; 71045; 74177; 80048; 80076; 81001; 82550; 82553; 83605; 83735; 84145; 84443; 84484; 85025; 85027; 85049; 85055; 87040; 87086; 87486; 87581; 87633; 87798; 93005; 93041; 94760; 96361; 96365; 96366; 96367; 96372; 96375; 99285; J0692; J1650; Q9967

== ENCOUNTER → 2024-04-15 | Outpatient (CLI) | payer MEDICARE, OTHER ==
[~2024-04-15] VITALS: Ht 171.4 cm; Wt 68.0 kg
[~2024-04-15] MED LIST changes: +DICL100G10 TOP; +LIDO5CRE6 TOP; +MELO15TA28 PO; +METO1TAB87 PO; +MICO2CRE45 TOP; +MIRA3350 PO; +OMEP40CA5 PO; +ONDA-284 PO; +PREG100CA PO; +PROBCAP2 PO
[2024-04-15 14:31] VITALS: BP 111/68; O2SAT 97
== END ==
LOC: M PAL 14:03
PROVIDERS: ATTEND Family Medicine
DX: Z51.5 Encounter for palliative care (principal); C83.398 Diffuse large B-cell lymphoma of other extranodal and solid organ sites; R10.13 Epigastric pain; M79.2 Neuralgia and neuritis, unspecified; R11.0 Nausea; K21.9 Gastro-esophageal reflux disease without esophagitis; G83.4 Cauda equina syndrome; Z79.52 Long term (current) use of systemic steroids; Z79.82 Long term (current) use of aspirin; Z79.890 Hormone replacement therapy; Z79.899 Other long term (current) drug therapy; Z88.6 Allergy status to analgesic agent; Z92.21 Personal history of antineoplastic chemotherapy; Z92.3 Personal history of irradiation; Z98.890 Other specified postprocedural states

== ENCOUNTER → 2024-04-27 | Outpatient (CLI) | payer OTHER, MEDICARE | LOC: M PLARAD 10:06 | PROVIDERS: ATTEND Internal Medicine Medical Oncology | DX: C83.398 Diffuse large B-cell lymphoma of other extranodal and solid organ sites (principal); K63.89 Other specified diseases of intestine | CPT/HCPCS: 78815; A9552 ==

== ENCOUNTER → 2024-05-27 | Outpatient (CLI) | payer OTHER, MEDICARE ==
[~2024-05-27] VITALS: Ht 171.4 cm; Wt 60.6 kg
[~2024-05-27] MED LIST changes: +CYMB1CAP5 PO
[2024-05-27 13:47] VITALS: BP 130/71; O2SAT 96
== END ==
LOC: M PAL 13:04
PROVIDERS: ATTEND Family Medicine
DX: Z51.5 Encounter for palliative care (principal); C85.19 Unspecified B-cell lymphoma, extranodal and solid organ sites; Z98.890 Other specified postprocedural states; Z92.3 Personal history of irradiation; Z92.21 Personal history of antineoplastic chemotherapy; R11.0 Nausea; K52.9 Noninfective gastroenteritis and colitis, unspecified; Z88.6 Allergy status to analgesic agent; G62.9 Polyneuropathy, unspecified

== ENCOUNTER → 2024-06-17 | Outpatient (CLI) | payer MEDICARE, OTHER ==
[~2024-06-17] VITALS: Ht 170.2 cm; Wt 67.9 kg
[~2024-06-17] MED LIST changes: +DULO1CAP6 PO; +SAW160CA22 PO; -SAW1CAP3 PO
[2024-06-17 10:06] VITALS: BP 92/52; O2SAT 96
== END ==
LOC: M PAL 09:52
PROVIDERS: ATTEND Physician Assistant
DX: Z51.5 Encounter for palliative care (principal); C83.32 Diffuse large B-cell lymphoma, intrathoracic lymph nodes; Z92.21 Personal history of antineoplastic chemotherapy; Z92.3 Personal history of irradiation; Z79.891 Long term (current) use of opiate analgesic; Z88.6 Allergy status to analgesic agent; Z79.899 Other long term (current) drug therapy

== ENCOUNTER 2024-07-14 10:56 | Day surgery (SDC) | payer MEDICARE, OTHER ==
[~2024-07-14] VITALS: Ht 170.2 cm; Wt 64.9 kg
[~2024-07-14 10:56] MED LIST changes: +GNP1000T11 PO; +LIDOCAINE 2% 100MG/5ML SDV (FOR ANES.) As Ordered ONE; +PROBCAP14 PO; +PROC5TAB57 PO; +propofoL 200 MG/20 ML VIAL As Ordered ONE
[2024-07-14 12:39] VITALS: TEMP 98.5
[2024-07-14 13:00] VITALS: BP 129/68; O2SAT 96
== END 2024-07-14 13:03 | disposition home or self-care (01) ==
LOC: M OPP 10:56
PROVIDERS: ATTEND Internal Medicine Gastroenterology
DX: K57.30 Diverticulosis of large intestine without perforation or abscess without bleeding (principal); K64.0 First degree hemorrhoids; R93.3 Abnormal findings on diagnostic imaging of other parts of digestive tract; G47.30 Sleep apnea, unspecified; Z88.8 Allergy status to other drugs, medicaments and biological substances; Z79.899 Other long term (current) drug therapy; J44.9 Chronic obstructive pulmonary disease, unspecified; Z87.891 Personal history of nicotine dependence

== ENCOUNTER → 2024-07-27 | Outpatient (CLI) | payer OTHER, MEDICARE ==
[~2024-07-27] VITALS: Ht 172.7 cm; Wt 67.1 kg
[~2024-07-27] MED LIST changes: -LIDOCAINE 2% 100MG/5ML SDV (FOR ANES.) As Ordered ONE; +PREG-35 PO; -PREG100CA PO; -PREG50CA PO; +PREG50CA87 PO; +TADA5TAB2 PO; -TADA5TAB94 PO; -propofoL 200 MG/20 ML VIAL As Ordered ONE
[2024-07-27 11:05] VITALS: BP 107/68; O2SAT 97
== END ==
LOC: M PAL 10:44
PROVIDERS: ATTEND Physician Assistant
DX: Z51.5 Encounter for palliative care (principal); C83.398 Diffuse large B-cell lymphoma of other extranodal and solid organ sites; C40.00 Malignant neoplasm of scapula and long bones of unspecified upper limb; Z92.3 Personal history of irradiation; Z92.21 Personal history of antineoplastic chemotherapy; Z98.890 Other specified postprocedural states; G83.4 Cauda equina syndrome; Z79.891 Long term (current) use of opiate analgesic; Z99.89 Dependence on other enabling machines and devices; N39.46 Mixed incontinence; Z88.8 Allergy status to other drugs, medicaments and biological substances; Z79.899 Other long term (current) drug therapy